=== PATIENT | female | born 1940 | race Caucasian/White ===

== ENCOUNTER 2022-11-17 10:22 | Emergency (ER) | payer MEDICARE, OTHER, SELFPAY ==
[2022-11-17] VITALS (24 sets, daily range): BP systolic 135–177; BP diastolic 73–99; PULSE 53–59; RESP 16; TEMP 36.4; O2SAT 94–98; BMI 27.3
--- NOTE | 2022-11-17 11:03 | CRLHL7_ITS ---
For Patients: As a result of the Cures Act, medical imaging exams and procedure reports are released immediately into your electronic medical record. You may view this report before your referring provider. If you have questions, please contact your health care provider. INDICATION: Speech difficulty, confusion, headache. TECHNIQUE: CT head without contrast. COMPARISON: September 06, 2021. FINDINGS: CSF spaces: Mild diffuse parenchymal volume loss. Brain parenchyma and extra-axial spaces: Moderate chronic white matter ischemic disease. The helton-white differentiation is normal. No sign of mass, hemorrhage, or midline shift. No extra-axial fluid collection. Skull base and calvarium: Mild mucoperiosteal thickening in the left maxillary sinus. Otherwise, the visualized paranasal sinuses and mastoid air cells demonstrate no acute or significant findings. Bilateral lens replacement. The visualized orbits are grossly unremarkable. No skull fractures. IMPRESSION: No acute intracranial abnormality on this noncontrast CT scan.. Moderate chronic white matter ischemic disease. Please note that all CT scans at this facility use dose modulation, iterative reconstruction, and/or weight-based dosing when appropriate to reduce radiation dose to as low as reasonably achievable. Dictated by Maynor Flores MD @ 11/17/2022 12:17:20 PM (Electronically Signed)
--- NOTE | 2022-11-17 11:11 | ED.NURSE ---
Pt ambulated to BR with a standby assist. Urine collected.
[2022-11-17 11:18] LABS: Appearance Urine Clear (Clear); Bilirubin Urine Negative (Negative); Blood Urine Negative (Negative); Color Urine Yellow (Yellow); Glucose Urine Negative (Negative); Ketones Urine Negative (Negative); Leukocyte Esterase Urine Negative (Negative); Nitrite Urine Negative (Negative); Protein Urine Negative (Negative); Specific Gravity Urine 1.015 (1.000-1.030); Urobilinogen Urine 0.2 (0.2-1.0)
[2022-11-17 11:44] LABS: RBC Urine 0-2 (0-2); WBC Urine 0-2 (0-5)
[2022-11-17 11:45] LABS: Squamous Epithelial Cell Urine Few (None-Few)
[2022-11-17 11:53] LABS: Basophils Absolute Auto 0.01 K/uL (0.00-0.30); Basophils Percent Auto 0.2 % (0.0-3.0); Eosinophils Absolute Auto 0.08 K/uL (0.00-0.50); Eosinophils Percent Auto 1.7 % (0.0-7.0); Hematocrit 36.2 % (33.0-51.0); Hemoglobin* 11.9 gm/dL (12.0-16.0); Immature Granulocytes Abs Auto 0.01 K/uL (0.00-0.30); Immature Granulocytes Pct Auto 0.2 %; Lymphocytes Absolute Auto 1.45 K/uL (0.90-2.90); Lymphocytes Percent Auto 30.9 % (20-44); Mean Corpuscular HGB Conc 33 gm/dL (32-36); Mean Corpuscular Hemoglobin 30 pg (26-34); Mean Corpuscular Volume 91 fL (80-100); Monocytes Percent Auto 9.4 % (0.0-11.0); Neutrophils Absolute Auto 2.71 K/uL (1.7-7.0); Neutrophils Percent Auto 57.6 % (42.0-72.0); Platelet Count* 240 K/uL (140-440); RDW Coefficient of Variation % 13.5 % (11.5-15.5); Red Blood Count 3.99 m/uL (4.00-5.20)
[2022-11-17 11:53] LABS: SARS PCR* Negative SARS-CoV-2 (Negative)
[2022-11-17 11:55] LABS: Slide Review Reflex No
[2022-11-17 12:06] LABS: Troponin, Point-of-Care* 0.01 ng/ml (0.01-0.04)
--- NOTE | 2022-11-17 12:39 | CRLHL7_ITS ---
For Patients: As a result of the Cures Act, medical imaging exams and procedure reports are released immediately into your electronic medical record. You may view this report before your referring provider. If you have questions, please contact your health care provider. INDICATION: Acute speech difficulties. TECHNIQUE: Sagittal T1, axial FLAIR, T2, diffusion-weighted and susceptibility weighted images of the brain. Comparison : CT brain dated 09/06/2021. FINDINGS: The ventricles normal in size and configuration no evidence of acute ischemic infarction. No areas of diffusion restriction no evidence of intracranial hemorrhage. Multi focal and confluent zones of FLAIR/T2 signal hyperintensity within bilateral supratentorial white matter and with fewer but similar findings in the basal ganglia and moiz. The changes are consistent with chronic microvascular ischemia. Orbits, sella and skull base unremarkable. Left maxillary sinus retention cyst and mild maxillary sinus mucosal thickening. IMPRESSION: 1. No evidence of acute ischemic infarction, intracranial hemorrhage or mass. 2. Consistent with moderate chronic microvascular ischemic changes. Dictated by Joe Robbins MD @ 11/17/2022 3:25:13 PM (Electronically Signed)
[2022-11-17 13:02] LABS: Erythrocyte SedimentationRate* 16 mm/hr (2-20)
[2022-11-17 14:04] LABS: Albumin* 4.3 g/dL (3.3-5.0)
[2022-11-17 14:05] LABS: Chloride* 104 mmol/L (96-114); Potassium* 4.3 mmol/L (3.6-5.1); Sodium* 138 mmol/L (135-149)
[2022-11-17 14:07] LABS: Alanine Aminotransferase* 23 U/L (4-35); Alkaline Phosphatase* 64 U/L (40-150); Aspartate Amino Transferase* 31 U/L (12-35); Bilirubin Direct* 0.3 mg/dL (0.0-0.5); Bilirubin Total* 0.6 mg/dL (0.1-1.5); Creatinine* 1.1 mg/dL (0.5-1.5); Est. Creatinine Clearance* 31.49; Estimated Glomerular Filt Rate 50 ml/min; Total Protein* 7.7 g/dL (6.0-8.3)
[2022-11-17 14:08] LABS: Blood Urea Nitrogen* 24 mg/dL (7-30); Carbon Dioxide* 27 mmol/L (20-32)
[2022-11-17 14:09] LABS: Calcium* 9.5 mg/dL (8.4-10.6); Glucose* 123 mg/dL (60-115)
[2022-11-17 14:14] LABS: C Reactive Protein* < 0.5 mg/dL (0.5-1.0)
--- NOTE | 2022-11-17 15:25 | ED.GENADULT ---
HPI - General Adult General Date Seen: 11/17/22 Chief complaint: Weakness Stated complaint: weakness Time Seen by Provider: 11/17/22 10:32 Source: patient and family Mode of arrival: EMS Limitations: no limitations History of Present Illness HPI narrative: Patient is an 82-year-old woman who comes in by EMS at the recommendation of her family for an evaluation of an episode yesterday. She tells me that she had a period of time yesterday where she was having difficulty talking, she says that her was making current a egg, she was having trouble talking about wanting the egg, something about having a spoon and trying to eat the egg with the spoon. She says she had some pain in her eye at that time, but does not specifically complain about visual symptoms. She says she slept most of the afternoon, and by the evening it sounds like she was back to normal. I asked if they considered coming in yesterday at all and she says that they did not because it was a weekend, and the last time she was seen on a weekend, she was admitted to the hospital and nothing happened until mid week. However, today when her daughter heard about what happened she insisted that she be evaluated today. Currently she is without complaints. She says she occasionally gets some dysuria but is not having any presently. She does not have any respiratory symptoms. She has not had any vomiting or diarrhea. She does tell me that she was supposed to be on thyroid medication, but in July or August she stopped taking that because she thought it was making her gassy. She says she did e-mail her primary doctor and tell her this, but her primary doctor then went on vacation for 3 months. She says that her primary doctor responded saying that she did not think it would work to be off of her thyroid medication, but at present it seems as if this has just been left in limbo. She does tell me she has a history of TIA. She is on clopidogrel. It does not appear that she has history of atrial fibrillation. Related Data Home Medications Medication Instructions Recorded Confirmed clopidogrel 75 mg tablet 75 mg PO DAILY 11/17/22 11/17/22 hydrochlorothiazide 25 mg tablet 25 mg PO DAILY 11/17/22 11/17/22 latanoprost 0.005 % eye drops 1 drp ophthalmic (eye) QPM 11/17/22 11/17/22 levothyroxine 25 mcg tablet 25 mcg PO DAILY 11/17/22 11/17/22 losartan 100 mg tablet 100 mg PO DAILY 11/17/22 11/17/22 metoprolol succinate 25 mg 25 mg PO DAILY 11/17/22 11/17/22 tablet,extended release 24 hr omeprazole 20 mg capsule,delayed 20 mg PO DAILY 11/17/22 11/17/22 release polyethylene glycol 3350 17 17 g PO DAILY 11/17/22 11/17/22 gram/dose oral powder pravastatin 20 mg tablet 20 mg PO DAILY 11/17/22 11/17/22 Allergies Allergy/AdvReac Type Severity Reaction Status Date / Time No Known Drug Allergies Allergy Verified 11/17/22 10:36 Review of Systems Status of ROS: Reports: 10 or more systems reviewed and unremarkable except as noted in History and below [facility] Social History Smoking Status: Never smoker Do you use any of these nicotine containing products: None Second hand tobacco smoke exposure: No How often do you have a drink containing alcohol: never How often do you have six or more drinks on one occasion: Never AUDIT-C Alcohol total score: 0 Non-prescribed substance use: denies use service: No Exam Narrative: Exam Narrative: Vital signs as noted above. In general, an alert, nontoxic, pleasant elderly female. Head: Normocephalic, atraumatic. Eyes: Pupils are equal reactive. Extraocular movements are full. No nystagmus. Conjunctivae are normal. ENT: Mucous membranes are moist. Throat is normal. Neck: Supple without lymphadenopathy. No bruits. Heart: Regular rate and rhythm. No murmur or rub. Lungs: Clear bilaterally. No increased work of breathing, crackles or wheezes. Abdomen: Soft and nontender. No organomegaly. Extremities: Well perfused. No edema. No calf tenderness. Pulses intact. Neurologic: Patient is alert and oriented to person and place. Speech is fluent. Face is symmetric. Moves all extremities equally. Visual luu are full. Cerebellar function is intact by finger-nose testing. Affect: Normal. Skin: Warm and dry. Well perfused. Const: Vital Signs, click to edit/add: Vital Signs - 24 hr 11/17/22 10:31 11/17/22 11:46 11/17/22 12:00 Temperature 97.5 F L Pulse Rate 55 L 57 L Pulse Rate [Right Pulse Oximeter] 57 L Respiratory Rate 16 Blood Pressure Blood Pressure [Ri ght Upper Arm] 149/84 H Pulse Oximetry 97 98 97 Oxygen Delivery Me thod Room Air 11/17/22 12:03 11/17/22 12:15 11/17/22 12:30 Temperature Pulse Rate 59 L 54 L 54 L Pulse Rate [Right Pulse Oximeter] Respiratory Rate Blood Pressure 135/76 Blood Pressure [Ri ght Upper Arm] Pulse Oximetry 95 95 97 Oxygen Delivery Me thod 11/17/22 12:32 11/17/22 12:45 11/17/22 13:03 Temperature Pulse Rate 55 L 59 L Pulse Rate [Right Pulse Oximeter] Respiratory Rate Blood Pressure 160/79 H 177/99 H Blood Pressure [Ri ght Upper Arm] Pulse Oximetry 97 98 Oxygen Delivery Me thod 11/17/22 13:05 11/17/22 13:15 11/17/22 13:30 Temperature Pulse Rate 55 L 55 L 54 L Pulse Rate [Right Pulse Oximeter] Respiratory Rate Blood Pressure Blood Pressure [Ri ght Upper Arm] Pulse Oximetry 96 97 94 Oxygen Delivery Me thod 11/17/22 13:32 Temperature Pulse Rate 53 L Pulse Rate [Right Pulse Oximeter] Respiratory Rate Blood Pressure 162/73 H Blood Pressure [Ri ght Upper Arm] Pulse Oximetry 94 Oxygen Delivery Me thod Documenting provider has reviewed patient's vital signs: yes Course Course Hospital Course: I did talk with her a little later in the course of her ER stay. His version of events is roughly similar although the speech difficulty is a little harder to parse out. It does seem that the episode was roughly centered around the egg, that she wanted to have an egg, that she had a spoon in her hand, that she seemed out of sorts. I asked him whether not she was having difficulty talking, and he said yes, but it seems in general just to center in his mind about the fact that she was yelling about wanting the a egg and waving the spoon around. He does confirm that he then got her to go to bed and she slept most of the rest of the day. Because there was some mention of eye pain or headache, I did do a CT scan of the head which by my review did not show any evidence of hemorrhage, final radiology review was likewise negative. Labs are notable for normal white blood cell count, unremarkable hemoglobin. Metabolic panel is normal, blood sugar here was 123. LFTs are unremarkable, CRP is less than 0.5. Notably, TSH is 22, not surprising since she has gone off her Synthroid. Free T4 is pending. Urinalysis is entirely negative. A COVID is negative in point of care troponin is 0.01. An EKG here shows a sinus bradycardia, ventricular rate of 55 beats per minute. No acute ST segment changes. She has been stable here without any acute neurologic events. I did elect to do an MRI today given that that there is some question of a speech related event yesterday. I am awaiting results of the radiology read of that, and awaiting the results of the free T4. MRI read by Radiology as negative for any acute findings. She does have small vessel ischemic disease. Her free T4 is low, as expected given that she stop taking her thyroid replacement. I have recommended to her that she restart this, I suspect that she will not based on her opinion that it is causing her gastrointestinal symptoms. At a minimum, I have recommended that she discuss this further with her primary care doctor. For now, I think discharge home is reasonable. Primary care follow-up next week for recheck. Etiology of episode yesterday unclear at this time. Return at any time for new or worsening symptoms. Vital Signs Vital signs: Initial Vital Signs Temperature 97.5 F L 11/17/22 10:31 Temperature Source Temporal Artery Scan 11/17/22 10:31 Pulse Rate 57 L 11/17/22 10:31 Respiratory Rate 16 11/17/22 10:31 Blood Pressure 149/84 H 11/17/22 10:31 Blood Pressure Mean 105 11/17/22 10:31 Blood Pressure Position Sitting 11/17/22 10:31 Pulse Oximetry 97 11/17/22 10:31 Oxygen Delivery Method 11/17/22 10:31 Vital Signs Temperature 97.5 F L 11/17/22 10:31 Pulse Rate 57 L 11/17/22 10:31 Respiratory Rate 16 11/17/22 10:31 Blood Pressure 149/84 H 11/17/22 10:31 Pulse Oximetry 97 11/17/22 10:31 Oxygen Delivery Method 11/17/22 10:31 Temperature 97.5 F L 11/17/22 10:31 Pulse Rate 55 L 11/17/22 15:33 Respiratory Rate 16 11/17/22 10:31 Blood Pressure 161/81 H 11/17/22 15:32 Pulse Oximetry 95 11/17/22 15:33 Oxygen Delivery Method 11/17/22 10:31 Medical Decision Making Lab Data Labs: Lab Results 11/17/22 11/17/22 11/17/22 Range/Units 11:00 11:11 11:35 WBC 4.70 (4.50-11.00) K/uL RBC 3.99 L (4.00-5.20) m/uL Hgb 11.9 L (12.0-16.0) gm/dL Hct 36.2 (33.0-51.0) % MCV 91 (80-100) fL MCH 30 (26-34) pg MCHC 33 (32-36) gm/dL RDW Coeff of Ted 13.5 (11.5-15.5) % Plt Count 240 (140-440) K/uL Neut % (Auto) 57.6 (42.0-72.0) % Lymph % (Auto) 30.9 (20-44) % Bailey % (Auto) 9.4 (0.0-11.0) % Eos % (Auto) 1.7 (0.0-7.0) % Baso % (Auto) 0.2 (0.0-3.0) % Neut # (Auto) 2.71 (1.7-7.0) K/uL Lymph # (Auto) 1.45 (0.90-2.90) K/uL Bailey # (Auto) 0.40 (0.00-0.90) K/UL Eos # (Auto) 0.08 (0.00-0.50) K/uL Baso # (Auto) 0.01 (0.00-0.30) K/uL ESR (2-20) mm/hr Sodium (135-149) mmol/L Potassium (3.6-5.1) mmol/L Chloride (96-114) mmol/L Carbon Dioxide (20-32) mmol/L BUN (7-30) mg/dL Creatinine (0.5-1.5) mg/dL Estimated Creat Clear Estimated GFR ml/min Glucose (60-115) mg/dL Calcium (8.4-10.6) mg/dL Total Bilirubin (0.1-1.5) mg/dL Direct Bilirubin (0.0-0.5) mg/dL AST (12-35) U/L ALT (4-35) U/L Alkaline Phosphatase (40-150) U/L C-Reactive Protein (0.5-1.0) mg/dL Total Protein (6.0-8.3) g/dL Albumin (3.3-5.0) g/dL TSH (0.270-4.200) uIU/mL Free T4 (0.70-1.85) ng/dL Urine Color Yellow (Yellow) Urine Appearance Clear (Clear) Urine pH 7.0 (5.0-8.5) Ur Specific [place] 1.015 (1.000-1.030) Urine Protein Negative (Negative) Urine Glucose (UA) Negative (Negative) Urine Ketones Negative (Negative) Urine Blood Negative (Negative) Urine Nitrite Negative (Negative) Urine Bilirubin Negative (Negative) Urine Urobilinogen 0.2 (0.2-1.0) Ur Leukocyte Esterase Negative (Negative) Urine RBC 0-2 (0-2) Urine WBC 0-2 (0-5) Ur Squamous Epith Cells Few (None-Few) Urine Bacteria None (None) SARS-CoV-2 (PCR) Negative SARS-CoV-2 (Negative) POC Troponin I (0.01-0.04) ng/ml 11/17/22 11/17/22 11/17/22 Range/Units 11:35 11:35 11:35 WBC (4.50-11.00) K/uL RBC (4.00-5.20) m/uL Hgb (12.0-16.0) gm/dL Hct (33.0-51.0) % MCV (80-100) fL MCH (26-34) pg MCHC (32-36) gm/dL RDW Coeff of Ted (11.5-15.5) % Plt Count (140-440) K/uL Neut % (Auto) (42.0-72.0) % Lymph % (Auto) (20-44) % Bailey % (Auto) (0.0-11.0) % Eos % (Auto) (0.0-7.0) % Baso % (Auto) (0.0-3.0) % Neut # (Auto) (1.7-7.0) K/uL Lymph # (Auto) (0.90-2.90) K/uL Bailey # (Auto) (0.00-0.90) K/UL Eos # (Auto) (0.00-0.50) K/uL Baso # (Auto) (0.00-0.30) K/uL ESR 16 (2-20) mm/hr Sodium 138 (135-149) mmol/L Potassium 4.3 (3.6-5.1) mmol/L Chloride 104 (96-114) mmol/L Carbon Dioxide 27 (20-32) mmol/L BUN 24 (7-30) mg/dL Creatinine 1.1 (0.5-1.5) mg/dL Estimated Creat Clear 31.49 Estimated GFR 50 ml/min Glucose 123 H (60-115) mg/dL Calcium 9.5 (8.4-10.6) mg/dL Total Bilirubin 0.6 (0.1-1.5) mg/dL Direct Bilirubin 0.3 (0.0-0.5) mg/dL AST 31 (12-35) U/L ALT 23 (4-35) U/L Alkaline Phosphatase 64 (40-150) U/L C-Reactive Protein < 0.5 L (0.5-1.0) mg/dL Total Protein 7.7 (6.0-8.3) g/dL Albumin 4.3 (3.3-5.0) g/dL TSH (0.270-4.200) uIU/mL Free T4 (0.70-1.85) ng/dL Urine Color (Yellow) Urine Appearance (Clear) Urine pH (5.0-8.5) Ur Specific [place] (1.000-1.030) Urine Protein (Negative) Urine Glucose (UA) (Negative) Urine Ketones (Negative) Urine Blood (Negative) Urine Nitrite (Negative) Urine Bilirubin (Negative) Urine Urobilinogen (0.2-1.0) Ur Leukocyte Esterase (Negative) Urine RBC (0-2) Urine WBC (0-5) Ur Squamous Epith Cells (None-Few) Urine Bacteria (None) SARS-CoV-2 (PCR) (Negative) POC Troponin I (0.01-0.04) ng/ml 11/17/22 11/17/22 11/17/22 Range/Units 11:35 11:35 11:35 WBC (4.50-11.00) K/uL RBC (4.00-5.20) m/uL Hgb (12.0-16.0) gm/dL Hct (33.0-51.0) % MCV (80-100) fL MCH (26-34) pg MCHC (32-36) gm/dL RDW Coeff of Ted (11.5-15.5) % Plt Count (140-440) K/uL Neut % (Auto) (42.0-72.0) % Lymph % (Auto) (20-44) % Bailey % (Auto) (0.0-11.0) % Eos % (Auto) (0.0-7.0) % Baso % (Auto) (0.0-3.0) % Neut # (Auto) (1.7-7.0) K/uL Lymph # (Auto) (0.90-2.90) K/uL Bailey # (Auto) (0.00-0.90) K/UL Eos # (Auto) (0.00-0.50) K/uL Baso # (Auto) (0.00-0.30) K/uL ESR (2-20) mm/hr Sodium (135-149) mmol/L Potassium (3.6-5.1) mmol/L Chloride (96-114) mmol/L Carbon Dioxide (20-32) mmol/L BUN (7-30) mg/dL Creatinine (0.5-1.5) mg/dL Estimated Creat Clear Estimated GFR ml/min Glucose (60-115) mg/dL Calcium (8.4-10.6) mg/dL Total Bilirubin (0.1-1.5) mg/dL Direct Bilirubin (0.0-0.5) mg/dL AST (12-35) U/L ALT (4-35) U/L Alkaline Phosphatase (40-150) U/L C-Reactive Protein (0.5-1.0) mg/dL Total Protein (6.0-8.3) g/dL Albumin (3.3-5.0) g/dL TSH 22.700 H (0.270-4.200) uIU/mL Free T4 0.52 L (0.70-1.85) ng/dL Urine Color (Yellow) Urine Appearance (Clear) Urine pH (5.0-8.5) Ur Specific [place] (1.000-1.030) Urine Protein (Negative) Urine Glucose (UA) (Negative) Urine Ketones (Negative) Urine Blood (Negative) Urine Nitrite (Negative) Urine Bilirubin (Negative) Urine Urobilinogen (0.2-1.0) Ur Leukocyte Esterase (Negative) Urine RBC (0-2) Urine WBC (0-5) Ur Squamous Epith Cells (None-Few) Urine Bacteria (None) SARS-CoV-2 (PCR) (Negative) POC Troponin I 0.01 (0.01-0.04) ng/ml Discharge Plan Discharge Clinical Impression: Confusion, Hypothyroid Patient Disposition: Home, Self-Care Condition: Improved Instructions: Hypothyroidism (ED), Acute Delirium (ED) Additional Instructions: Overall, your tests today are reassuring. Your MRI does not show any evidence of a new stroke, and there is no sign of an infection, significant problem with your heart, or electrolyte problem. You do have low thyroid hormone levels, consistent with the fact that you are not taking your thyroid replacement. I would recommend that you go back on this medication, as being persistently low in thyroid hormone can cause significant problems. At a minimum, this is something you should discuss further with your primary doctor. Prescriptions: No Action latanoprost 0.005 % drops 1 drp ophthalmic (eye) QPM clopidogrel 75 mg tablet 75 mg PO DAILY levothyroxine 25 mcg tablet 25 mcg PO DAILY omeprazole 20 mg capsule,delayed release(DR/EC) 20 mg PO DAILY pravastatin 20 mg tablet 20 mg PO DAILY hydrochlorothiazide 25 mg tablet 25 mg PO DAILY metoprolol succinate 25 mg tablet extended release 24 hr 25 mg PO DAILY polyethylene glycol 3350 17 gram/dose powder 17 g PO DAILY losartan 100 mg tablet 100 mg PO DAILY Follow Up/Referrals: Nora Watters MD [Primary Care Provider] - Stand Alone Forms: [employer] Info Instructions
[2022-11-17 15:34] LABS: Free T4 Free Thyroxine* 0.52 ng/dL (0.70-1.85)
--- NOTE | 2022-11-17 15:50 | ED.NURSE ---
walked to and from the bathroom and was wobbly on the legs needed SBA with staff or .
== END 2022-11-17 16:10 | disposition home or self-care (01) ==
PROVIDERS: Emergency Provider Emergency Medicine; PCP Family Medicine
DX: R41.0 Disorientation, unspecified (principal); E03.9 Hypothyroidism, unspecified
CPT/HCPCS: 36415; 70450; 70551; 80048; 80076; 81001; 84439; 84443; 84484; 85025; 85651; 86140; 87635; 93005; 99284; 99285

== ENCOUNTER 2023-03-31 06:27 | Day surgery (SDC) | payer MEDICARE, OTHER, SELFPAY ==
[2023-03-31] VITALS (9 sets, daily range): BP systolic 129–177; BP diastolic 60–83; PULSE 58–64; RESP 16; TEMP 36.1–36.4; O2SAT 95–97; BMI 27.4
[2023-03-31] MEDS: BUPIVACAINE 0.5% 30 ML INJECTION (07:35)
[2023-03-31] MEDS: lidocaine HCL 2 % MULTIDOSE 20 ML VIAL 5 ML INJECTION (07:42)
--- NOTE | 2023-03-31 07:51 | PM.ORPRC ---
Procedure Note Date of procedure: 03/31/23 Procedure: Preop diagnosis: Left hand ring finger stenosing tenosynovitis Postop diagnosis: Left hand ring finger stenosing tenosynovitis Procedure: Left hand ring finger A1 chani release Anesthesia: Local Surgeon: David Bruce MD licensed physical therapy assistant: Rosy Wolf PA-C EBL: 0 mL Complications: None Specimens: None Drains: None Preoperative antibiotics: None Indications: The patient has a history of left upper extremity ring finger painful catching and locking. Despite appropriate non operative management including flexor tendon sheath corticosteroid injections they continue to have symptoms. Operative intervention was recommended. The risks, benefits alternatives and expected outcomes were discussed in detail. These included but were not limited to: Infection, bleeding, injury to blood vessel or nerve, venous thromboembolism. All questions were answered to their satisfaction. The patient was placed supine on the operating room table. Local anesthesia was established with 0.5% Marcaine without epinephrine and 2% lidocaine without epinephrine. The hand was prepped and draped in usual sterile fashion. The limb was elevated the forearm pneumatic tourniquet was inflated to 250 mm of mercury. A transverse incision was made centered over the base of the ring finger in the distal palmar crease. Subcutaneous dissection was taken through the palmar fascia to the flexor tendons with the tenotomy scissors. The A1 chani was released with the 15 blade and a tenotomy scissors. Active flexion and extension of the finger shows no catching or locking, no bowstringing of the flexor tendons. The wound was closed with interrupted nylon sutures. A dry dressing was applied the tourniquet was released. Sponge and needle counts were correct x 2. The patient tolerated the procedure well, there were no apparent complications. They were sent to same day surgery in satisfactory condition. Plan: Use of the hand as tolerates. Discontinue the intraoperative dressing on postoperative day 3 and may get the wound wet as tolerates. Follow up in the office in 2 weeks for a wound check and suture removal.
== END 2023-03-31 08:29 | disposition home or self-care (01) ==
PROVIDERS: PCP Physician Assistant; Visit Provider Orthopaedic Surgery
PROC: (CPT 26055; principal; 2023-03-31 07:15)
DX: M65.342 Trigger finger, left ring finger (principal); M65.842 Other synovitis and tenosynovitis, left hand
CPT/HCPCS: 26055; J0665

== ENCOUNTER 2023-04-28 11:15 | Outpatient (RCR) | payer MEDICARE, OTHER, SELFPAY ==
--- NOTE | 2023-04-07 15:19 | OT.OPOE ---
OT Outpatient Ortho Eval OT Outpatient Ortho Eval* Start: 04/07/23 13:37 Freq: Status: Active Protocol: Document 04/07/23 13:38 AMB (Rec: 04/07/23 15:15 AMB [id number]) E-signed By Reina León, OTR/L, CLT, MANAGER MEDICAL AFFAIRS OT OP Ortho Eval Details Complexity Complexity Low Insurance Information Insurance Information Medicare B Outpatient History/Precautions Current Condition/Medical Diagnosis Referring Provider Sruthi Jauregui PA-C Treatment Diagnosis Release of TF of the LUE 4th digit Date of Onset 03/31/23 Medical Conditions HTN,CA,Arthritis Other Conditions PMH (Copied from medical chart ) Glaucoma H40.9 - Unspecified glaucoma ( ICD-10) Melanoma C43.9 - Malignant melanoma of skin, unspecified (ICD-10) Anxiety F41.9 - Anxiety disorder, unspecified (ICD-10) Blood disorder D75.9 - Disease of blood and blood-forming organs, unspecified (ICD-10) Anemia D64.9 - Anemia, unspecified ( ICD-10) Incontinence of urine R32 - Unspecified urinary incontinence (ICD-10) Chronic kidney disease N18.9 - Chronic kidney disease , unspecified (ICD-10) GERD (gastroesophageal reflux disease) K21.9 - Gastro-esophageal reflux disease without esophagitis (ICD-10) Irritable bowel syndrome (IBS) K58.9 - Irritable bowel syndrome without diarrhea (ICD -10) High cholesterol E78.00 - Pure hypercholesterolemia, unspecified (ICD-10) Hypertension I10 - Essential (primary) hypertension (ICD-10) CHF (congestive heart failure) I50.9 - Heart failure, unspecified (ICD-10) TIA (transient ischemic attack ) G45.9 - Transient cerebral ischemic attack, unspecified ( ICD-10) Infection due to severe acute respiratory syndrome coronavirus 2 (SARS-CoV-2) U07.1 - COVID-19 (ICD-10) Surgical History (Updated 07/23 @ 09:47 by Zion Peace) History of arthroscopy of left knee (~11/08/13) Z98.890 - Other specified postprocedural states (ICD-10) History of bladder repair surgery Z98.890 - Other specified postprocedural states (ICD-10) History of tonsillectomy Z90.89 - Acquired absence of other organs (ICD-10) History of hysterectomy Z90.710 - Acquired absence of both cervix and uterus (ICD-10 ) History of left knee replacement (~07/31/09) Z96.652 - Presence of left artificial knee joint (ICD-10) History of appendectomy Z90.49 - Acquired absence of other specified parts of digestive tract (ICD-10) History of phacoemulsification of cataract of left eye with intraocular lens implantation (06/14/14) Z98.42 - Cataract extraction status, left eye (ICD-10) Z96.1 - Presence of intraocular lens (ICD-10) History of phacoemulsification of cataract of right eye with intraocular lens implantation (06/28/14) Z98.41 - Cataract extraction status, right eye (ICD-10) Z96.1 - Presence of intraocular lens (ICD-10) History of arthroscopy of left shoulder (07/09/18) Z98.890 - Other specified postprocedural states (ICD-10) History of carpal tunnel release (10/21/18) Z98.890 - Other specified postprocedural states (ICD-10) History of YAG laser capsulotomy of lens of right eye (05/02/20) Z98.41 - Cataract extraction status, right eye (ICD-10) History of YAG laser capsulotomy of lens of left eye (05/16/20) Z98.42 - Cataract extraction status, left eye (ICD-10) Medical/Functional History Medical History Reviewed Yes Social History Employment Status Retired Ortho Subjective Subjective Subjective Pt states her finger and hand have been quite stiff and swollen since her TF release on 03/31/23. PT states she is able to do most everything but is careful with her left hand . Pt states she has been quite stressed recently as she recently had a spot of skin cancer removed from her left ear, also states that her has some dementia and that has also been stressful. Pt states her pain is 5/5 in her hand, describes it as sharp sometimes but mostly throbbing. Pain Assessment Pain Present Pain Present Pain Reported Range of Motion and Strength Wrist Range of Motion and Strength Wrist Range of Motion and Strength 04/07/23 AROM of the LUE is WNL throughout with the exception of her ring finger. AROM of the LUE ring finger MP is 0-65 , PIP is -20-75, DIP is 0-30. Strength testing not performed due to recent surgery. OT Objective Data Hand Hand Dominance Right Skin/Wounds/Edema Comments 04/07/23 Surgical wound still closed by sutures, will have removed next week. Incisional area is clean and dry, no s/s of infection, no drainage noted today. Sensation Sensation Assessment Summary Comments 04/07/23 Numbness in the palm in surgical field, expected. OT Problems Problems Problems Decreased Strength,Decreased Range of Motion,Decreased Dexterity,Pain,Lifting, Gripping,Pinching Other Problems Opening Containers Patient Potential Good Assessment Assessment Assessment Pt is a very pleasant 82yo female reporting to OT 7 days post LUE 4th digit TF release with expected swelling, numbness, weakness and limited AROM of the LUE, mostly the 4th digit. These limitations impair pt's ability to quality head, lift, open containers / complete higher level ADLs and IADLs that require use of LUE or bilateral integration. Pt will benefit from skilled OT intervention to improve ROM, strength, decrease swelling, and restore full, functional use of her LUE. Occupational Therapy Treatment Plan - OP Potential Rehabilitation Potential Good Set Goals Goals Set with Patient Yes Goals Goals 1. Pt will be independent and compliant with HEP in order to resume full, pain-free use of the involved UE. 3 weeks 2. Pt will demonstrate full, pain-free AROM of the involved UE in order to improve ability to grasp and hold. 6 weeks 3. Pt will demonstrate pain- free quality head and pinch strength comparable to the uninvolved side in order to improve functional grasp, hold, reach, and lifting ability needed to complete self-care, leisure tasks, and work activities. 8 weeks. Treatment Plan Treatment Plan Evaluation,Edema Control,Joint Mobilization,Manual Therapy, Splinting,Ultrasound,Wound Care/Scar Management, Therapeutic Exercise, Therapeutic Activities,Self Care/Home Management,Education Expected Frequency 1-2x Week Expected Duration 8-10 Weeks Home Program Home Program Home Program Initiated Home Program Specifics 04/07/23 Initiated AROM and gentle AAROM of the LUE 4th digit. Pt was provided training and practice in HEP. Following demo, pt is able to complete exs with minimal cues . Pt was provided with written inst for use at home. Certification Certification I Certify That: Therapy Services Provided, Therapy Plan Established, Therapy Plan Reviewed Recertification Information Recertification Information Initial Certification Date 04/07/23 Recertification Due Date 07/08/23 Reasons to Continue Skilled Therapy Initiated OT today to address LUE ROM, strength, swelling, and pain following 4th digit TF release. Pt will benefit from skilled OT intervention to address these impairments and restore full, pain-free use of her LUE. Rehabilitation Potential Good Continued Plan of Care and Interventions Please see above Provider Signature Shows Agreement With POC & Medical Necessity Physician Comment/Change Comment or Changes Physician NPI Number #
== END 2023-04-28 13:53 | disposition home or self-care (01) ==
PROVIDERS: PCP Physician Assistant; Visit Provider Physician Assistant
DX: M65.342 Trigger finger, left ring finger (principal); Z51.89 Encounter for other specified aftercare
CPT/HCPCS: 97110; 97140; 97165; X5282

== ENCOUNTER 2024-06-24 07:41 | Observation (INO) | payer MEDICARE, OTHER, SELFPAY ==
[2024-06-24] VITALS (14 sets, daily range): BP systolic 135–163; BP diastolic 59–86; PULSE 67–96; RESP 12–16; TEMP 36.7–37.5; O2SAT 94–97; BMI 24.8; BMI 23.5
--- NOTE | 2024-06-24 08:15 | ED.WEAKNESS ---
HPI - Weakness General Chief complaint: Weakness Stated complaint: Weakness Time Seen by Provider: 06/24/24 07:57 History of Present Illness HPI Narrative: This 84-year-old woman comes in by ambulance reporting weakness that began yesterday afternoon. She states she is normally able to get up and ambulate and despite the report of weakness she still is able to get up and ambulate. She does frequently have urinary incontinence and wears depends. She did not get up to the bathroom this morning and was incontinent of urine. She is not reporting any pain or fever. She does not indicate any neurologic deficits. She arrives here with normal vital signs. Related Data Home Medications ?Medication ?Instructions ?Recorded ?Confirmed clopidogrel 75 mg tablet 75 mg PO DAILY 11/17/22 06/24/24 latanoprost 0.005 % eye drops 1 drp ophthalmic (eye) QPM 11/17/22 06/24/24 pravastatin 20 mg tablet 20 mg PO DAILY 11/17/22 06/24/24 thyroid (pork) 15 mg tablet 15 mg PO QDAY 03/16/23 04/13/23 ([place] Thyroid) ciclopirox 8 % topical solution 1 applic topical QPM 06/24/24 06/24/24 famotidine 40 mg tablet 40 mg PO DAILY 06/24/24 06/24/24 ferrous sulfate 325 mg (65 mg 325 mg PO 3XW 06/24/24 06/24/24 iron) tablet,delayed release losartan 50 mg tablet 50 mg PO DAILY 06/24/24 06/24/24 [id number] acid 0.4 1 tab PO DAILY 06/24/24 06/24/24 mg-lycopene 300 mcg-lutein 250 mcg tablet (Centrum Silver) oxybutynin chloride 5 mg 5 mg PO DAILY 06/24/24 06/24/24 tablet,extended release 24 hr thyroid (pork) 60 mg tablet 60 mg PO DAILY 06/24/24 06/24/24 ([place] Thyroid) Allergies Allergy/AdvReac Type Severity Reaction Status Date / Time ciprofloxacin Allergy Mild Joint Pain Verified 06/24/24 08:17 lisinopril Allergy Mild Fatigued Verified 06/24/24 08:17 amlodipine AdvReac Unknown Verified 06/24/24 08:17 atenolol AdvReac Unknown Verified 06/24/24 08:17 codeine AdvReac Unknown Dry Mouth Verified 06/24/24 08:17 contrast dye Allergy Unknown Hives Uncoded 06/24/24 08:17 Review of Systems Status of ROS: Reports: 10 or more systems reviewed and unremarkable except as noted in History and below Narrative: Constitutional: No fevers, no weight gain or loss. She reports generalized weakness. Eyes: No discharge. No vision changes. HENT: No congestion, no sore throat, no ear pain. Cardiovascular: No chest pain, no palpitations. Respiratory: No shortness of breath, no wheezes, no cough. Gastrointestinal: No abdominal pain, no vomiting, no diarrhea. Genitourinary: No dysuria, no hematuria. Musculoskeletal: Normal range of motion. Skin: No rashes, no pruritis. Neurological: No dizziness, weakness, sensory change, speech change. Endo/Heme/Allergies: No bruising or bleeding. No polydipsia. Pysch: no suicidality, no anxiety, no insomnia. All other systems reviewed and are negative. [facility] Medical History (Updated 06/24/24 @ 12:35 by Daryl Jane MD) Glaucoma ?H40.9 - Unspecified glaucoma (ICD-10) Melanoma ?C43.9 - Malignant melanoma of skin, unspecified (ICD-10) Anxiety ?F41.9 - Anxiety disorder, unspecified (ICD-10) Blood disorder ?D75.9 - Disease of blood and blood-forming organs, unspecified (ICD-10) Anemia ?D64.9 - Anemia, unspecified (ICD-10) Incontinence of urine ?R32 - Unspecified urinary incontinence (ICD-10) Chronic kidney disease ?N18.9 - Chronic kidney disease, unspecified (ICD-10) GERD (gastroesophageal reflux disease) ?K21.9 - Gastro-esophageal reflux disease without esophagitis (ICD-10) Irritable bowel syndrome (IBS) ?K58.9 - Irritable bowel syndrome without diarrhea (ICD-10) High cholesterol ?E78.00 - Pure hypercholesterolemia, unspecified (ICD-10) Hypertension ?I10 - Essential (primary) hypertension (ICD-10) CHF (congestive heart failure) ?I50.9 - Heart failure, unspecified (ICD-10) TIA (transient ischemic attack) ?G45.9 - Transient cerebral ischemic attack, unspecified (ICD-10) Infection due to severe acute respiratory syndrome coronavirus 2 (SARS-CoV-2) ?U07.1 - COVID-19 (ICD-10) Surgical History (Updated 04/13/23 @ 12:33 by Ghazal Arthur ~ [employer], [employer]) History of arthroscopy of left knee (~11/08/13) ?Z98.890 - Other specified postprocedural states (ICD-10) History of bladder repair surgery ?Z98.890 - Other specified postprocedural states (ICD-10) History of tonsillectomy ?Z90.89 - Acquired absence of other organs (ICD-10) History of hysterectomy ?Z90.710 - Acquired absence of both cervix and uterus (ICD-10) History of left knee replacement (~07/31/09) ?Z96.652 - Presence of left artificial knee joint (ICD-10) History of appendectomy ?Z90.49 - Acquired absence of other specified parts of digestive tract (ICD-10) History of phacoemulsification of cataract of left eye with intraocular lens implantation (06/14/14) ?Z98.42 - Cataract extraction status, left eye (ICD-10) ?Z96.1 - Presence of intraocular lens (ICD-10) History of phacoemulsification of cataract of right eye with intraocular lens implantation (06/28/14) ?Z98.41 - Cataract extraction status, right eye (ICD-10) ?Z96.1 - Presence of intraocular lens (ICD-10) History of arthroscopy of left shoulder (07/09/18) ?Z98.890 - Other specified postprocedural states (ICD-10) History of carpal tunnel release (10/21/18) ?Z98.890 - Other specified postprocedural states (ICD-10) History of YAG laser capsulotomy of lens of right eye (05/02/20) ?Z98.41 - Cataract extraction status, right eye (ICD-10) History of YAG laser capsulotomy of lens of left eye (05/16/20) ?Z98.42 - Cataract extraction status, left eye (ICD-10) Family History (Updated 03/10/23 @ 09:45 by Zion Peace) Other Alcohol dependence Breast cancer High blood pressure Stroke Social History Smoking Status: Never smoker Do you use any of these nicotine containing products: None Second hand tobacco smoke exposure: No How often do you have a drink containing alcohol: never How often do you have six or more drinks on one occasion: Never AUDIT-C Alcohol total score: 0 Non-prescribed substance use: denies use service: No Exam Narrative: Exam Narrative: Constitutional: Well-developed, well-nourished, no acute distress. HEENT: Normocephalic, atraumatic. Neck: Normal range of motion. Nontender. Supple. Heart: Regular. No murmurs. Normal rate. Intact distal pulses. Lungs: Clear to auscultation. No chest discomfort. No wheezes, rhonchi, or rales. Abdomen: Normal bowel sounds. Nontender. No rebound tenderness. Genitalia: Deferred. Back: No midline tenderness. Normal range of motion. Extremities: Normal range of motion. No injury. Skin: Intact. No rash. Warm. No erythema or pallor. Neurologic: No altered sensation. No unilateral weakness. Alert and oriented. Psychiatric: No suicidality. No anxiety or depression. No insomnia. Nursing notes and vitals signs are reviewed. Const: Vital Signs, click to edit/add: Vital Signs - 24 hr 06/24/24 07:51 06/24/24 09:02 06/24/24 09:32 Temperature 98.1 F Pulse Rate 76 68 Pulse Rate [Pulse Oximeter] 77 Respiratory Rate 16 14 12 Blood Pressure 155/72 H 150/72 H Blood Pressure [Ri ght Upper Arm] 163/75 H Pulse Oximetry 97 96 97 Oxygen Delivery Me thod Room Air 06/24/24 10:02 06/24/24 10:32 06/24/24 11:01 Temperature Pulse Rate 72 70 84 Pulse Rate [Pulse Oximeter] Respiratory Rate 14 12 16 Blood Pressure 161/75 H 149/73 H 151/73 H Blood Pressure [Ri ght Upper Arm] Pulse Oximetry 96 97 97 Oxygen Delivery Me thod 06/24/24 11:41 Temperature Pulse Rate 80 Pulse Rate [Pulse Oximeter] Respiratory Rate 12 Blood Pressure 155/64 H Blood Pressure [Ri ght Upper Arm] Pulse Oximetry 97 Oxygen Delivery Me thod Room Air Course Vital Signs Vital signs: Initial Vital Signs Temperature 98.1 F 06/24/24 07:51 Temperature Source Temporal Artery Scan 06/24/24 07:51 Pulse Rate 77 06/24/24 07:51 Respiratory Rate 16 06/24/24 07:51 Blood Pressure 163/75 H 06/24/24 07:51 Blood Pressure Mean 104 06/24/24 07:51 Blood Pressure Position Semi-Fowlers 06/24/24 07:51 Pulse Oximetry 97 06/24/24 07:51 Oxygen Delivery Method Room Air 06/24/24 07:51 Vital Signs Temperature 98.1 F 06/24/24 07:51 Pulse Rate 77 06/24/24 07:51 Respiratory Rate 16 06/24/24 07:51 Blood Pressure 163/75 H 06/24/24 07:51 Pulse Oximetry 97 06/24/24 07:51 Oxygen Delivery Method Room Air 06/24/24 07:51 Temperature 98.1 F 06/24/24 07:51 Pulse Rate 80 06/24/24 11:41 Respiratory Rate 12 06/24/24 11:41 Blood Pressure 155/64 H 06/24/24 11:41 Pulse Oximetry 97 06/24/24 11:41 Oxygen Delivery Method Room Air 06/24/24 11:41 MDM - Weakness MDM Narrative Medical decision making narrative: This 84-year-old female comes in because of generalized weakness. She does have a chronic history of urinary incontinence. She arrives here with normal vital signs and her exam is generally unremarkable. Labs are acquired along with urinalysis and these do not bring clarity as to what is causing her generalized weakness. The patient was assisted by the nurse to attempt to get up to use the bathroom but this was a clear indication that she truly is currently generally weak. Family members are present and states that she typically goes and goes until she crashes and then sleeps for a while and can recover. She did have COVID about 6 months ago and since then she has declined mentally. She did spend a couple months in a rehab facility at that time. Her daughter is stating that she has been trying to convince the patient and her to move to assisted living but has been unsuccessful up to now. I did speak with the hospitalist on-call, Dr. Bojorquez, who agrees to bring the patient in for observation admission. Lab Data Labs: Lab Results 06/24/24 06/24/24 06/24/24 Range/Units 07:55 08:14 11:35 WBC 11.05 H (4.50-11.00) K/uL RBC 4.09 (4.00-5.20) m/uL Hgb 11.9 L (12.0-16.0) gm/dL Hct 36.1 (33.0-51.0) % MCV 88 (80-100) fL MCH 29 (26-34) pg MCHC 33 (32-36) gm/dL RDW Coeff of Ted 13.3 (11.5-15.5) % Plt Count 218 (140-440) K/uL Neut % (Auto) 86.3 H (42.0-72.0) % Lymph % (Auto) 6.9 L (20-44) % Clare % (Auto) 6.5 (0.0-11.0) % Eos % (Auto) 0.0 (0.0-7.0) % Baso % (Auto) 0.1 (0.0-3.0) % Neut # (Auto) 9.50 H (1.7-7.0) K/uL Lymph # (Auto) 0.80 L (0.90-2.90) K/uL Clare # (Auto) 0.70 (0.00-0.90) K/UL Eos # (Auto) 0.00 (0.00-0.50) K/uL Baso # (Auto) 0.00 (0.00-0.30) K/uL Abs Immat Gran (auto) 0.00 (0.00-0.30) K/uL Imm/Tot Granulo (auto) 0.2 % Sodium 133 L (135-149) mmol/L Potassium 3.8 (3.6-5.1) mmol/L Chloride 99 (96-114) mmol/L Carbon Dioxide 23 (20-32) mmol/L Anion Gap 11 (7-15) mEq/L BUN 20 (7-30) mg/dL Creatinine 0.8 (0.5-1.5) mg/dL Estimated Creat Clear 33.41 Estimated GFR 72 ml/min Glucose 163 H (60-115) mg/dL Calcium 9.5 (8.4-10.6) mg/dL Urine Color Yellow (Yellow) Urine Appearance Clear (Clear) Urine pH 6.0 (5.0-8.5) Ur Specific [place] 1.025 (1.000-1.030) Urine Protein 2+ A (Negative) Urine Glucose (UA) Negative (Negative) Urine Ketones Negative (Negative) Urine Blood Negative (Negative) Urine Nitrite Negative (Negative) Urine Bilirubin Negative (Negative) Urine Urobilinogen 0.2 (0.2-1.0) Ur Leukocyte Esterase Negative (Negative) Urine RBC 0-2 (0-2) Urine WBC 0-2 (0-5) Ur Squamous Epith Cells Moderate A (None-Few) Urine Bacteria None (None) SARS-CoV-2 (PCR) Negative SARS-CoV-2 (Negative) Influenza Type A (PCR) Negative PCR FLU A (Negative) Influenza Type B (PCR) Negative PCR FLU B (Negative) ECG Data Attestation: I personally reviewed and interpreted this ECG as follows: Interpretation: Normal sinus rhythm. Rate is 76 beats per minute. There are no ST or T-wave abnormalities. Discharge Plan Discharge Clinical Impression: Weakness Prescriptions: No Action [place] Thyroid 15 mg tablet 15 mg PO QDAY losartan 50 mg tablet 50 mg PO DAILY famotidine 40 mg tablet 40 mg PO DAILY ciclopirox 8 % solution 1 applic topical QPM oxybutynin chloride 5 mg tablet extended release 24hr 5 mg PO DAILY ferrous sulfate 325 mg (65 mg iron) tablet,delayed release (DR/EC) 325 mg PO 3XW thyroid (pork) [[place] Thyroid] 60 mg tablet 60 mg PO DAILY Centrum Silver 0.4 mg-300 mcg- 250 mcg tablet 1 tab PO DAILY latanoprost 0.005 % drops 1 drp ophthalmic (eye) QPM clopidogrel 75 mg tablet 75 mg PO DAILY pravastatin 20 mg tablet 20 mg PO DAILY Follow Up/Referrals: Catrachita Vela PA-C [Primary Care Provider] -
[2024-06-24 08:26] LABS: Basophils Percent Auto 0.1 % (0.0-3.0); Hematocrit 36.1 % (33.0-51.0); Hemoglobin* 11.9 gm/dL (12.0-16.0); Immature Granulocytes Pct Auto 0.2 %; Lymphocytes Percent Auto 6.9 % (20-44); Mean Corpuscular HGB Conc 33 gm/dL (32-36); Mean Corpuscular Hemoglobin 29 pg (26-34); Mean Corpuscular Volume 88 fL (80-100); Monocytes Percent Auto 6.5 % (0.0-11.0); Neutrophils Percent Auto 86.3 % (42.0-72.0); Platelet Count* 218 K/uL (140-440); RDW Coefficient of Variation % 13.3 % (11.5-15.5); Red Blood Count 4.09 m/uL (4.00-5.20); White Blood Count* 11.05 K/uL (4.50-11.00)
[2024-06-24 08:31] LABS: Slide Review Reflex No
[2024-06-24 08:38] LABS: PCR FLU A Negative PCR FLU A (Negative); PCR FLU B Negative PCR FLU B (Negative); SARS PCR* Negative SARS-CoV-2 (Negative)
[2024-06-24 08:46] LABS: Chloride* 99 mmol/L (96-114); Potassium* 3.8 mmol/L (3.6-5.1); Sodium* 133 mmol/L (135-149)
[2024-06-24 08:49] LABS: Anion Gap 11 mEq/L (7-15); Blood Urea Nitrogen* 20 mg/dL (7-30); Carbon Dioxide* 23 mmol/L (20-32); Creatinine* 0.8 mg/dL (0.5-1.5); Est. Creatinine Clearance* 33.41; Estimated Glomerular Filt Rate 72 ml/min; Glucose* 163 mg/dL (60-115)
[2024-06-24 08:50] LABS: Calcium* 9.5 mg/dL (8.4-10.6)
--- OUTSIDE RECORDS SUMMARY | 2024-06-24 09:06 | XMS_ITS | Clinical Summary ---
Author Organization [facility] Address [place], [place] [address] Care Team Providers Care Die Keeper Name Role Phone Catrachita Vela Primary Care Provider [phone] Allergies Active Allergy Reactions Criticality Noted Date Comments Amlodipine Edema 01/19/2009 Atenolol Tremors 05/12/2008 Ciprofloxacin Arthralgia 09/22/2013 Caused joint pains Codeine Other - Describe In Comment Field 07/10/2008 Dry mouth Diatrizoate Allergen Hives 05/12/2008 Lisinopril Other - Describe In Comment Field 11/29/2008 Fatigue Medications Medication Sig Dispensed Refills Start Date End Date Status medical supply, miscellaneous (GRADUATED COMPRESSION STOCKINGS)Indicati ons:Varicose veins of both lower extremities, unspecified whether complicated 20-30 mm/Hg calf high or thigh high compression stockings - Venous insufficiency 6 Packet 0 Active multivitamins-mine rals-lutein (CENTRUM SILVER) 0.4-300-250 mg-mcg-mcg tab Take 1 Tablet by mouth once daily. Active latanoprost (XALATAN) 0.005 % ophthalmic solutionIndication s:open angle glaucoma INSTILL 1 DROP IN BOTH EYES AT BEDTIME 7.5 mL 3 Active ciclopirox solution (LOPROX) 8 % solutionIndication s:onychomycosis due to dermatophyte APPLY TOPICALLY TO THE AFFECTED AREA AT BEDTIME 6.6 mL 2 3 Active ferrous sulfate 325 mg delayed release tabletIndications: iron deficiency anemia TAKE 1 TABLET BY MOUTH THREE TIMES PER WEEK 90 Tablet 3 4 Active clopidogreL (PLAVIX) 75 mg tabletIndications: acute coronary syndrome Take 1 Tablet (75 mg) by mouth every morning. 90 Tablet 3 4 Active pravastatin (PRAVACHOL) 20 mg tabletIndications: atherosclerotic cardiovascular disease Take 1 Tablet (20 mg) by mouth at bedtime. 90 Tablet 3 4 Active oxybutynin XL (DITROPAN XL) 5 mg CR tabletIndications: bladder hyperactivity Take 1 Tablet (5 mg) by mouth once daily. 90 Tablet 3 4 Active acetaminophen (TYLENOL EXTRA STRGTH) 500 mg tablet Take 1-2 Tablets by mouth every 6 hours if needed for Pain. Max acetaminophen dose: 4000mg in 24 hrs. Active Walker - 4 wheelsIndications: Encephalopathy due to COVID-19 virus,Poor balance For home use. Length of need: 99 walker with wheels and seat 1 Each 4 Active losartan (COZAAR) 50 mg tabletIndications: HTN (hypertension) Take 1 Tablet (50 mg) by mouth once daily. 90 Tablet 3 4 Active famotidine (PEPCID) 40 mg tabletIndications: Chronic GERD TAKE 1 TABLET(40 MG) BY MOUTH EVERY DAY 90 Tablet 3 4 Active thyroid ([place] Thyroid) 60 mg tabletIndications: Hypothyroidism (acquired) TAKE 1 TABLET BY MOUTH DAILY 90 Tablet 1 4 Active famotidine (PEPCID) 40 mg tabletIndications: dyspepsia Take 1 Tablet (40 mg) by mouth once daily. 90 Tablet 3 3 06/07/20 24 Discontinued thyroid ([place] Thyroid) 60 mg tabletIndications: hypothyroidism Take 1 Tablet (60 mg) by mouth once daily. 90 Tablet 3 3 06/21/20 24 Discontinued mupirocin 2% ointmentIndication s:Skin abrasion Apply topically to affected area(s) three times daily for 5 days. 30 g 4 05/29/20 24 Active Problems Problem Noted Date Diagnosed Date Moderate dementia without behavioral disturbance 02/18/2024 Hypothyroidism (acquired) 02/16/2024 Hypokalemia 01/06/2024 Bilateral lower extremity pain 01/06/2024 Cognitive impairment 12/27/2023 COVID-19 12/23/2023 Weakness 12/23/2023 Confusion 12/23/2023 Encephalopathy due to COVID-19 virus 12/23/2023 Depression, recurrent 09/24/2023 Acute on chronic diastolic heart failure 022 Assessment & Plan (01/14/2023 7:14 AM CDT): Chart update only. SHAVON Han .................... 01/14/2023 7:14 AM Stage 3b chronic kidney disease 09/04/2021 Assessment & Plan (01/14/2023 7:14 AM CDT): Chart update only. SHAVON Han .................... 01/14/2023 7:14 AM Lower GI bleed 06/19/2021 Overview (06/04/2022): Colonoscopy [facility] 05/2021 R bleeding, internal hemorrhoids(felt to be cause of acute rectal bleed) Hospitalized at [facility]: colonoscopy (05/2021)showed a number of sites of bleeding in the right colon which the gastroenterology bleed felt was likely the cause of her iron deficiency. These were treated with argon laser cauterization. Also noted to have internal hemorrhoids present on colonoscopy which were felt to be the cause of her rectal bleeding. ASA stopped Post-op Diagnoses: ? - Three colonic angiodysplastic lesions. Treated with argon beam ? coagulation. Clip (MR conditional) was placed. ? - Three 4 to 5 mm polyps in the descending colon and in the transverse ? colon, removed with a cold snare. Resected and retrieved. ? - Diverticulosis in the recto-sigmoid colon. ? - Internal hemorrhoids. Sebaceous cyst 01/25/2019 Systolic hypertension 03/24/2016 Gallstones 10/15/2015 Impaired fasting glucose 05/24/2015 Nocturnal leg cramps 05/24/2015 Cataract of both eyes 06/09/2014 Cognitive impairment 02/23/2014 Anemia 02/10/2014 Overview (07/24/2021): Acute on chronic anemia with GI bleed after ASA added to plavix therapy EGD: 05/2021 active gastritis Colonoscopy: multiple polyps, R colon bleeding cauterized,colonoscopy revealed multiple sites of angio ectasia in the right colon which were treated with argon laser ASA stopped Chronic - EGD 2013 showed gastritis Low ferrtin Colonography 2018 negative for causes of blood loss Left knee DJD 11/01/2013 Diastolic dysfunction 08/19/2013 Hyperlipidemia 06/17/2013 Gastritis - atrophic 08/12/2012 Overview (11/05/2020): EGD 2013 - gastritis that could account for mild blood loss Osteopenia 08/12/2012 Overview (12/04/2021): DEXA 2020 - increased frax score for hip Discussed with patient use of bisphosphonates. Patient uncertain if she would like to start medication. Will readdress annually Colon polyp 08/14/2011 Overview (07/24/2021): Colonoscopy 07/2011 polyp repeat in 5 years Colonoscopy 11/2016 incomplete to sigmoid, severe diverticular disease, recommend BE or virtual colonography if desired Colonography 2018 negative for polyp/tumor Colonoscopy [facility] 2020:??Colon, transverse, descending, endoscopic biopsy: Tubular adenoma, low-grade dysplasia. POAG (primary open-angle glaucoma) 04/01/2011 Overview (04/01/2011): Left Eye Onychomycosis 03/10/2011 Insomnia, unspecified 12/03/2010 Mixed incontinence urge and stress (male)(female ) 10/29/2010 Chronic rhinitis 10/01/2010 TIA (transient ischemic attack) 06/18/2010 Overview (06/19/2021): ASA added to plavix after TIA in 03/2021 Neuro consult ASA stopped after significant GI bleed 05/2021 Unspecified venous (peripheral) insufficiency LACUNAR INFARCTION 10/05/2000 Overview (12/22/2008): MRI head 03/06: small vessel ischemic disease, chronic lacunar infarct right basal ganglia CHRONIC ANXIETY Overview (01/25/2008): With hyperventilation Irritable bowel syndrome CHRONIC DIZZINESS Overview (01/25/2008): Suspect benign positional vertigo Varicose vein Osteoarthritis Resolved Problems Problem Noted Date Diagnosed Date Resolved Date Gastritis 03/21/2014 03/24/2016 Overview (03/21/2014): EGD 02/2014 gastritis, no follow up EGD needed HTN (hypertension) 02/09/2014 4 Osteoarthritis 05/13/2012 07/12/2012 Osteoarthritis 05/13/2012 10/18/2012 Abdominal bloating 12/22/2011 3 Anemia, unspecified 06/30/2011 03/24/20 14 Diarrhea 06/16/2011 10/18/2012 Left elbow pain 11/22/2010 11/11/2012 Unspecified urinary incontinence 10/01/2010 10/18/2012 Unspecified urinary incontinence 10/01/2010 10/01/2010 Thrombophlebitis leg superficial 08/02/2008 10/18/2012 Allergic rhinitis, cause unspecified 10/18/2012 Unspecified transient cerebral ischemia 10/01/2010 Overview (01/25/2008): Possible x 2 Unspecified glaucoma 012 Encounters Date Type Department Care Team Description 06/19/2024 Refill [facility] [address] [place] [address] Catrachita Vela PA Refill Request ([place] Thyroid) 06/02/2024 Refill [facility] [address] [place] [address] Catrachita Vela PA Refill Request (Famotidine) 05/24/2024 1:10 PM CDT Office Visit [facility] [address] [place] [address] Catrachita Vela PA Bee Sting (Got stung by a bee about a week ago-got under her shirt-hurt so bad her shirt couldn't touch it-still has a bump there) 05/24/2024 Travel 05/13/2024 Refill [facility] [address] [place] [address] Willow Oglesby PA Refill Request (Latanoprost) 05/05/2024 Refill [facility] [address] [place] [address] Willow Oglesby PA Refill Request (Latanoprost) 04/19/2024 2:50 PM CDT Office Visit [facility] [address] [place] [address] Catrachita Vela PA Fall (fall on 04/02/2447-[id number] pain on left side of chest around ribcage, karissa on her back); Serious Illness Conversation 04/19/2024 Travel 04/10/2024 11:37 AM CDT - 04/10/2024 12:15 PM CDT Emergency [address] [address] Lilliam Lubin PA Encounter for staple removal (Primary Dx) Discharge Disposition: Home Self Care 04/10/2024 Travel 04/02/2024 4:40 PM CDT - 04/02/2024 8:47 PM CDT Emergency [address] [address] Neva John DO Mott, Sarah Emily, MD Concussion with unknown loss of consciousness status, initial encounter (Primary Dx); Laceration of scalp, initial encounter Discharge Disposition: Home Self Care 03/25/2024 Telephone [facility] [address] [place] [address] Catrachita Vela PA Medication Management from Last 3 Months Immunizations Name Administration Dates Next Due AMB Influenza, IIV3 (Age >=3 years)(Flu Clinic Only) 06/05/2009,06/26/2008 Amb Influenza, Inact (High-d ose) (Flu Clinic Only) 07/10/2016 COVID-19 vaccine ([employer] 30mcg/0.3mL) 12YO+ BIVALENT PF, MDV 07/30/2022 COVID-19 vaccine ([employer] 30mcg/0.3mL) PF, MDV 07/24/2021,11/06/2020,10/16/2020 Influenza, High-dose Inactivated 07/10/2016,12/2014,05/23/2014 Influenza, High-dose Quadriv alent Inactivated 05/16/2020 Influenza, IIV3 (Age 6-35 mos) 06/09/2011 Influenza, IIV3 (Age >=3 years) 06/17/20 13,05/12/2012,06/09/2011,2008,06/26/2008,07/29/2007,07/21/2006,1 08/31/2005,07/17/2005,07/01/2004, 003 Influenza, Inactivated AIIV4 (Age 65+ Years) Preserv Free 07/09/2023,06/04/2022,07/24/2021 Influenza, Inactivated IIV3 (Age 65+ Years) Preserv Free 07/06/2019,04/28/2018,05/27/2017 Pneumococcal Poly,23-Valent (Pneumovax) 07/01/2004 Pneumococcal conj 13-Valent (Prevnar 13) 10/16/2014 Td, Preservative Free (age > = 7 Years) 03/10/2011 Tdap 04/02/2024 Zoster (Shingrix-RZV, recombinant) 03/15/2018, Zoster (Zostavax-ZVL, live) 07/12/2012 Family History Medical History Relation Name Comments Stroke Brother 3 age 33 Cancer Brother 4 bladder Other Daughter Lali has aneurysm Alcohol/Drug Father Cancer Father lung Cancer Mother bladder Hypertension Mother Cancer-breast Paternal Aunt Relation Name Status Comments Brother 1 Alive Brother 2 Alive Brother 3 Brother 4 Daughter Lali Father (Age 76) Mother (Age 88) Paternal Aunt Social History Tobacco Use Types Packs/Day Years Used Date Smoking Tobacco: Former Cigarettes 0 1 Smokeless Tobacco: Never Tobacco Cessation:Counseling Given: Yes Alcohol Use Standard Drinks/Week Comments No 0 (1 standard drink = 0.6 oz pur e alcohol) 1-2 a year. PHQ-2 Answer Date Recorded PHQ-2 TOTAL SCORE 0 09/22/2023 Social Connections Answer Date Recorded Frequency of Communication with Friends and Fami ly 0 09/22/2023 Financial Resource Strain Answer Date R ecorded Difficulty of Paying Living Expenses 3 09/22/2023 Difficulty of Paying Living Expenses Not on file 09/22/2023 Food Insecurity Answer Date Recorded Do you worry your food will run out before you are able to buy more? 1 01/06/2024 Transportation Needs Answer Date Record ed Lack of Transportation (Medical) 1 09/22/2023 Housing Stability Answer Date Recorded What is your housing situation today? 1 01/06/2024 Sex and Gender Information Value Date Recorded Sex Assigned at Not on file Gender Identity Not on file Sexual Orientation Not on file Obstetrics History Para Term AB IAB SAB Ectopic Multiple Livin g Live Births 2 2 2 Date Outcome GA Total Labor Labor/2nd/3rd Weight Sex Type Anes PTL Vandana A1 A5 Name Clin Para Para Last Filed Vital Signs Vital Sign Reading Time Taken Comments Blood Pressure 138/79 05/24/2024 1:18 PM CDT Pulse 87 05/24/2024 1:18 PM CDT Temperature 36.4 ??C (97.5 ??F) 04/10/2024 11:43 AM C DT Respiratory Rate 16 04/10/2024 11:43 AM CDT Oxygen Saturation 92% 05/24/2024 1:18 PM CDT Inhaled Oxygen Concentration - - Weight 61.7 kg (136 lb) 05/24/2024 1:18 PM CDT Height 165.1 cm (5' 5) 04/10/2024 11:43 AM CDT Body Mass Index 22.63 04/10/2024 11:43 AM CDT Plan of Treatment Health Maintenance Due Date Last Done Comments RSV vaccine for adults or (1 - 1-dose 75+ series) 2013 COVID-19 vaccine series ( season) 2024 07/30/2022, 07/24/2021, 11/06/2020, Additional history exists Influenza for age 65+ 05/01/2024 07/09/2023 , 06/04/2022, 07/24/2021, Additional history exists BMI (ht and wt on same day) for age 18+ 09/22/2024 09/22/2023, 06/04/2022, 10/10/2020, Additional history exists Depression screening for age 12+ 09/22/2024 09/22/2023, 06/04/2022, 10/11/2020, Additional history exists Medicare Wellness for age 65+ 09/22/2024, 06/04/2022, 10/10/2020, Additional history exists Tetanus booster 04/02/2034 04/02/2024, 02/28, 03/10/2011 Pneumococcal series for age 65+ Completed 5, 07/01/2004 Zoster (shingles) series for age 50+ Completed 03/15/2018, 12/24/2017, 07/12/2012 DEXA/DXA scan for age 65+ Completed 2020, 08/10/2012, 02/08/2009 Tdap Completed 04/02/2024, 01/13/2014 Procedures Procedure Name Priority Date/Time Associated Diagnosis Comments TROPONIN T (HS) ONE TIME Timed 04/02/2024 7:[address] HEAD BRAIN WO STAT 04/02/2024 5:[address] SPINE CERVICAL WO STAT 04/02/2024 5:11 PM CDT XR CHEST 1 VIEW PORTABLE STAT 04/02/2024 4:57 PM CDT TROPONIN T (HS) ACUTE W/2HR REFLEX STAT 04/02/2024 4:48 PM CDT PROTIME-INR STAT 04/02/2024 4:48 PM CDT BASIC METABOLIC PANEL STAT 04/02/2024 4:48 PM CDT CBC W PLT NO DIFF STAT 04/02/2024 4:4 8 PM CDT GLUCOSE METER Routine 04/02/2024 4:43 PM CDT EKG 12 LEAD STAT 04/02/2024 4:39 PM CDT XR DXA BONE DENSITY 2 SITES AXIAL Routine 10/11/2020 12:10 PM ASSOCIATE SALES REPRESENTATIVE Other specified disorders of bone density and structure, multiple sites Osteopenia, unspecified location from Last 3 Months or Most Recently Relevant to Health Maintenance Results * (ABNORMAL) TROPONIN T (HS) ONE TIME (04/02/2024 7:07 PM CDT) Pathologist [facility] TROPONIN T HS 36(H) 6-10 ng/L ng/L 04/02/2024 7:31 PM CDT [facility] Blood BLOOD SPECIMEN / Unknown Venipuncture / Unknown 04/02/2024 7:07 PM CDT 04/02/2024 7:07 PM CDT Neva John DO CHEMISTRY [facility] [address] [address] * CT HEAD BRAIN WO (04/02/2024 5:12 PM CDT) Anatomical Region Laterality Modality HEAD, BRAIN Computed Tomogra phy Neva John DO CT * CT SPINE CERVICAL WO (04/02/2024 5:11 PM CDT) Anatomical Region Laterality Modality CERVICAL SPINE, NECK, Spine Comp uted Tomography Neva John DO CT * XR CHEST 1 VIEW PORTABLE (04/02/2024 4:57 PM CDT) Anatomical Region Laterality Modality HEART, THORAX, CHEST Digital Rad iography Neva John DO GENERAL IMAGING * (ABNORMAL) TROPONIN T (HS) ACUTE W/2HR REFLEX (04/02/2024 4:48 PM CDT) TROPONIN T HS 38(H) 6-10 ng/L ng/L 04/02/2024 5:15 PM CDT [facility] Blood BLOOD SPECIMEN / Unknown Venipuncture / Unknown 04/02/2024 4:48 PM CDT 04/02/2024 4:49 PM CDT Narrative [facility] - 04/02/2024 5:15 PM CDT hs-cTnT (Elecsys Troponin T Gen 5) concentration (s) above the sex-specific 99th percentile (16 ng/L or greater for males or 11 ng/L or greater for females) are indicative of myocardial injury. If initial hs-cTnT <=100 ng/L at presentation, a 0h/2h ABSOLUTE (ng/L) delta change (rising or falling) of >=10 ng/L suggests a significant change, whereas a 0h/2h delta change <=3 ng/L suggests no significant change. If initial hs-cTnT >100 ng/L at presentation, a 0h/2h/ RELATIVE (percent, %) delta change of 20% is suggested to distinguish patients with acute vs. chronic myocardial injury. There are multiple etiologies that can cause hs-cTnT increases above the 99th percentile (myocardial injury) other than acute myocardial infarction. Clinical context and careful clinical evaluation are critical for diagnosis and risk-stratification. The diagnosis of acute myocardial infarction requires a rising and/or falling pattern in hs-cTnT concentrations with at least one value above the sex-specific 99th percentile PLUS at least one of the following clinical criteria: ischemic symptoms, new or presumed new significant ST-T wave changes or new LBBB, development of pathological Q waves, imaging evidence of new loss of viable myocardium or new regional wall motion abnormality, or identification of intracoronary atherothrombosis or an acute angiographic culprit on coronary angiography. In appropriate low-risk patients with a non-ischemic electrocardiogram without active chest pain with a symptom onset >3-hours without recurrence, a single initial hs-cTnT<6 ng/L identifies patient with a very low risk in emergency department patient population. Nevaopal Brunerwni John DO CHEMISTRY [facility] [address] [address] * (ABNORMAL) CBC W PLT NO DIFF (04/02/2024 4:48 PM CDT) Pathologist [facility] WHITE BLOOD COUNT 5.0 4.5 - 11.0 thou/cu mm 04/02/2024 4:53 PM CDT [facility] RED BLOOD COUNT 3.55(L) 4.00 - 5.20 mil/cu mm 04/02/2024 4:53 PM [facility] HEMOGLOBIN 10.6(L) 12.0 - 16.0 g/dL 04/02/2024 4:53 PM [facility] HEMATOCRIT 32.2(L) 33.0 - 51.0 % 04/02/2024 4:53 PM T [facility] MCV 91 80 - 100 fL 04/02/2024 4:53 PM T [facility] MCH 29.9 26.0 - 34.0 pg 04/02/2024 4:53 PM [facility] MCHC 32.9 32.0 - 36.0 g/dL 04/02/2024 4:53 PM [facility] RDW 13.6 11.5 - 15.5 % 04/02/2024 4:53 PM [facility] PLATELET COUNT 241 140 - 440 thou/cu mm 04/02/2024 4:53 PM [facility] MPV 9.5 6.5 - 11.0 fL 04/02/2024 4:53 PM [facility] Blood BLOOD SPECIMEN / Unknown Venipuncture / Unknown 04/02/2024 4:48 PM CDT 04/02/2024 4:49 PM CDT Neva John DO HEMATOLOGY [facility] [address] [address] * PROTIME-INR (04/02/2024 4:48 PM CDT) Pathologist [facility] INR 1.0 <1.3 04/02/2024 5:00 PM CDT [facility] PROTIME 11.4 10.3 - 12.3 sec 04/02/2024 5:00 PM CDT [facility] Blood BLOOD SPECIMEN / Unknown Venipuncture / Unknown 04/02/2024 4:48 PM CDT 04/02/2024 4:[address] [facility] - 04/02/2024 5:00 PM CDT ?Therapeutic Range 2.0-3.0 for most anticoagulated patients 2.5-3.5 or 4.0 for high risk patients The INR is only used for patients on stable oral anticoagulant therapy. It makes no significant contribution to the diagnosis or treatment of patients whose Protime is prolonged for other reasons. INR results are increased when heparin levels exceed 1.0 U/mL, which corresponds to an aPTT >125 seconds if the patient is on UFH. Neva John DO HEMATOLOGY [facility] [address] [address] * (ABNORMAL) BASIC METABOLIC PANEL (04/02/2024 4:48 PM CDT) [facility] SODIUM 142 136 - 145 mmol/L 04/02/2024 5:15 PM CDT [facility] POTASSIUM 3.8 3.5 - 5.1 mmol/L 04/02/2024 5:15 PM CDT [facility] CHLORIDE 105 98 - 107 mmol/L 04/02/2024 5:15 PM CDT [facility] CO2,TOTAL 24 22 - 29 mmol/L 04/02/2024 5:15 PM CDT [facility] ANION GAP 13 5 - 18 04/02/2024 5:15 PM CDT [facility] GLUCOSE 114(H) 70 - 99 mg/dL 04/02/2024 5:15 PM CDT [facility] CALCIUM 9.7 8.8 - 10.2 mg/dL 04/02/2024 5:15 PM CDT [facility] BUN 24(H) 8 - 23 mg/dL 04/02/2024 5:15 PM CDT [facility] CREATININE 0.88 0.50 - 0.90 mg/dL 04/02/2024 5:15 PM T [facility] BUN/CREAT RATIO 27(H) 10 - 20 5:15 PM T [facility] eGFR 64(L) >90 mL/min/1.7 3m2 04/02/2024 5:15 PM T [facility] Comment:As of 2021, eG FR is calculated by the CKD-EPI creatinine equation without race adjustment. ??eGFR can be influenced by muscle mass, exercise, and diet. ??The reported eGFR is an estimation only and is only applicable if the renal function is stable. Blood BLOOD SPECIMEN / Unknown Venipuncture / Unknown 04/02/2024 4:48 PM CDT 04/02/2024 4:49 PM CDT Neva John DO CHEMISTRY Performing Organization Address City/[facility]/ZIP Co de Phone Number [facility] [address] [address] * (ABNORMAL) GLUCOSE METER (04/02/2024 4:43 PM CDT) [facility] Signature GLUCOSE METER 104(H) 65 - 100 mg/dL 04/02/2024 6:33 PM CDT [facility] Blood BLOOD SPECIMEN / Unknown 04/02/2024 4:43 PM CDT 04/02/2024 6:33 PM CDT Neva John DO CHEMISTRY Performing Organization Address City/[facility]/ZIP Co de Phone Number [facility] [address] [address] * EKG 12 LEAD (04/02/2024 4:39 PM CDT) Interpretation Normal sinus rhythm Nonspecific ST abnormality Abnormal ECG When compared with ECG of 06-Jan-2024 06:27, Premature supraventricular complexes are no longer Present ST no longer depressed in Anterior leads Nonspecific T wave abnormality no longer evident in Inferior leads BEYOND NOW Ventricular Rate 81 BPM BEYOND NOW Atrial Rate 81 BPM BEYOND NOW P-R Interval 160 ms BEYOND NOW QRS Duration 86 ms BEYOND NOW QT 370 ms BEYOND NOW QTc 429 ms BEYOND NOW P [place] 46 degrees BEYOND NOW R [place] 46 degrees BEYOND NOW T [place] 61 degrees BEYOND NOW 04/02/2024 4:39 PM CDT 04/03/2024 4:27 PM CDT Neva Lanier Dora DO EKG ORD BEYOND NOW [place], [place] * (ABNORMAL) XR DXA BONE DENSITY 2 SITES AXIAL (10/11/2020 12:10 PM ASSOCIATE SALES REPRESENTATIVE) Anatomical Region Laterality Modality Spine, HIPS, HIPL, HIPR Other Impressions 10/17/2020 9:05 AM ASSOCIATE SALES REPRESENTATIVE Osteopenia. RECOMMENDATIONS: - The National Osteoporosis Foundation recommends pharmacologic treatment for patients with T-scores of -2.5 or less, patients with prior history of fragility fractures, or patients with 10-year probability of greater than 3% at hips or greater than 20% of suffering major osteoporotic fractures. - Recommend continued optimization of calcium and vitamin D intake through dietary means and/or supplementation and regular exercise. Repeat scan recommended in 2-3 years. Cristy Schumacher PA-C Narrative 10/17/2020 9:05 AM ASSOCIATE SALES REPRESENTATIVE XR DXA Bone Mineral Density (BMD) EXAM LOCATION: [address] [address] PATIENT NAME: Elda Lockwood DATE OF : 1940 EXAM DATE: 10/11/2020 REQUESTING PROVIDER: Nora Watters MD GENDER AT : female HEIGHT: 5' 2.6 (10/10/2020) WEIGHT: ??152 lb 11.2 oz (10/10/2020) MENOPAUSAL STATUS: Postmenopausal RACE/ETHNICITY: White RISK FACTORS: ADVANCED AGE and RACE CURRENT MEDICATION FOR BONE LOSS: NONE INDICATION: FOLLOW UP OF EXISTING OSTEOPENIA COMPARISON DATE(S): 2011 at [facility] DXA scans are compared to prior studies for a patient only when the two (or more) studies were performed on the same scanner. It is not possible to compare data generated on one scanner to data from another because there are not standards in DXA equipment. This applies even if the two scanners are made by the same muffle worker. PROCEDURE: Dual-energy x-ray absorptiometry performed with routine technique. Reporting is completed in the form of a T-score. The T-score represents the standard deviation from peak bone mass based on young healthy adult. A Z-score is used for diagnosis in premenopausal women, and for men under the age of 50. FINDINGS: RESULT LUMBAR SPINE L1 - L4 BMD: 1.283 g/cm2 T-Score: 0.7 Z-Score: 2.5 Comparison to baseline scan in 2012: ??Increase 8.8%. RESULT FEMORAL NECK Bilateral Total Femoral Neck BMD: 0.860 g/cm2 T-Score: -1.3 Z-Score: 0.9 RESULT TOTAL HIP Bilateral Total Hip BMD: 0.897 g/cm2 T-Score: -0.9 Z-Score: 1.2 Comparison to baseline scan in 2012: ??Decrease 8.7%. WHO criteria: Normal: T-score at or above -1 SD Osteopenia: T-score between -1.1 and -2.4 SD Osteoporosis: T-score at or below -2.5 SD FRAX RISK CALCULATION (USED FOR OSTEOPENIA ONLY): 10-year probability of major osteoporotic fracture: 12.8%. 10-year probability of hip fracture: 3.2%. Nora Watters MD DEXA from Last 3 Months or Most Recently Relevant to Health Maintenance Advance Directives Documents on File Type Date Recorded Patient [place] Attendant Expl anation Power of Readers' Advisory Service Librarian 04/26/2015 04/26/2015 * DNR (Latest Code Status on File) Date Activated Date Inactivated Comments 01/06/2024 11:44 AM 01/08/2024 4:48 PM Question Answer Comments Code Status Discussion: Reviewed Preferences * DNR Date Activated Date Inactivated Comments 12/24/2023 6:45 AM 12/29/2023 2:08 PM Question Answer Comments Code Status Discussion: Reviewed Preferences * Full Code Date Activated Date Inactivated Comments 12/23/2023 8:33 PM 12/24/2023 6:45 AM Question Answer Comments Code Status Discussion: Unable to Assess Preferences, Provider to review later * Full Code Date Activated Date Inactivated Comments 11/08/2013 7:36 AM 11/08/2013 2:06 PM * Full Code Date Activated Date Inactivated Comments 04/01/2011 4:26 PM 04/02/2011 2:20 AM Care Teams Die Keeper Relationship Specialty Start Date End Date Catrachita Vela PA [address] [place] [address] PCP - General Physician [employer] 02/23/23
[2024-06-24 11:47] LABS: Appearance Urine Clear (Clear); Bilirubin Urine Negative (Negative); Blood Urine Negative (Negative); Color Urine Yellow (Yellow); Glucose Urine Negative (Negative); Ketones Urine Negative (Negative); Leukocyte Esterase Urine Negative (Negative); Nitrite Urine Negative (Negative); Protein Urine 2+ (Negative); Specific Gravity Urine 1.025 (1.000-1.030); Urobilinogen Urine 0.2 (0.2-1.0)
[2024-06-24 11:56] LABS: RBC Urine 0-2 (0-2); Squamous Epithelial Cell Urine Moderate (None-Few); WBC Urine 0-2 (0-5)
[2024-06-24 14:22] LABS: Troponin I* < 0.01 ng/mL (0.01-0.04)
--- NOTE | 2024-06-24 14:50 | PM.IMHP1 ---
Hospitalist- H&P: HPI History of Present Illness Date Seen: 06/24/24 Chief complaint: Weakness Narrative: Elda Lockwood is a 84 year old female who presented to the ER by ambulance for weakness. She was accompanied by family members in the ER, they had left by the time she was seen for admission. Patient notes that she felt a little ?shaky? yesterday, without a fever. This morning she was very weak and could not ambulate to the bathroom. She denies any dysuria, states chronic urinary incontinence. No diarrhea or constipation, appetite a little low, no nausea or vomiting, no abdominal pain. No recent falls. No recent illness; although per the ER, she had COVID within the past year and has had difficulty with weakness since then. ER Course and findings: - reassuring lab panel and VS - unable to get out of bed without the assistance of 2 people Given patient's weakness and inability to ambulate without assistance, patient is admitted to the hospital in observation status. Review of Systems Status of ROS: Reports: 10 or more systems reviewed and unremarkable except as noted in History and below Narrative: - denies recent falls (notably had a fall + scalp laceration requiring sutures and ER visit in March 2024) [facility] Medical History (Updated 06/24/24 @ 15:28 by Yue Bojorquez MD) CKD (chronic kidney disease) stage 3, GFR 30-59 ml/min ?N18.30 - Chronic kidney disease, stage 3 unspecified (ICD-10) (HFpEF) heart failure with preserved ejection fraction ?I50.30 - Unspecified diastolic (congestive) heart failure (ICD-10) Glaucoma ?H40.9 - Unspecified glaucoma (ICD-10) Melanoma ?C43.9 - Malignant melanoma of skin, unspecified (ICD-10) Anxiety ?F41.9 - Anxiety disorder, unspecified (ICD-10) Blood disorder ?D75.9 - Disease of blood and blood-forming organs, unspecified (ICD-10) Anemia ?D64.9 - Anemia, unspecified (ICD-10) Incontinence of urine ?R32 - Unspecified urinary incontinence (ICD-10) Chronic kidney disease ?N18.9 - Chronic kidney disease, unspecified (ICD-10) GERD (gastroesophageal reflux disease) ?K21.9 - Gastro-esophageal reflux disease without esophagitis (ICD-10) Irritable bowel syndrome (IBS) ?K58.9 - Irritable bowel syndrome without diarrhea (ICD-10) High cholesterol ?E78.00 - Pure hypercholesterolemia, unspecified (ICD-10) Hypertension ?I10 - Essential (primary) hypertension (ICD-10) TIA (transient ischemic attack) ?G45.9 - Transient cerebral ischemic attack, unspecified (ICD-10) Infection due to severe acute respiratory syndrome coronavirus 2 (SARS-CoV-2) ?U07.1 - COVID-19 (ICD-10) Surgical History (Updated 04/13/23 @ 12:33 by Ghazal Arthur ~ FAGOTING MACHINE OPERATOR, FAGOTING MACHINE OPERATOR) History of arthroscopy of left knee (~11/08/13) ?Z98.890 - Other specified postprocedural states (ICD-10) History of bladder repair surgery ?Z98.890 - Other specified postprocedural states (ICD-10) History of tonsillectomy ?Z90.89 - Acquired absence of other organs (ICD-10) History of hysterectomy ?Z90.710 - Acquired absence of both cervix and uterus (ICD-10) History of left knee replacement (~07/31/09) ?Z96.652 - Presence of left artificial knee joint (ICD-10) History of appendectomy ?Z90.49 - Acquired absence of other specified parts of digestive tract (ICD-10) History of phacoemulsification of cataract of left eye with intraocular lens implantation (06/14/14) ?Z98.42 - Cataract extraction status, left eye (ICD-10) ?Z96.1 - Presence of intraocular lens (ICD-10) History of phacoemulsification of cataract of right eye with intraocular lens implantation (06/28/14) ?Z98.41 - Cataract extraction status, right eye (ICD-10) ?Z96.1 - Presence of intraocular lens (ICD-10) History of arthroscopy of left shoulder (07/09/18) ?Z98.890 - Other specified postprocedural states (ICD-10) History of carpal tunnel release (10/21/18) ?Z98.890 - Other specified postprocedural states (ICD-10) History of YAG laser capsulotomy of lens of right eye (05/02/20) ?Z98.41 - Cataract extraction status, right eye (ICD-10) History of YAG laser capsulotomy of lens of left eye (05/16/20) ?Z98.42 - Cataract extraction status, left eye (ICD-10) Family History (Updated 03/10/23 @ 09:45 by Zion Peace) Other Alcohol dependence Breast cancer High blood pressure Stroke Social History (Updated 06/24/24 @ 15:12 by Yue Bojorquez MD) Narrative: Lives with and son in [place]. Nonsmoker, no concerning ETOH use. Requests DNR/DNI status, also noted in Epic chart during recent clinic visit with PCP. What is your current living situation?: I presently have a place to live Problems where you live: unable to answer Problems where you live details: N/A In the past 12 months, utilities in danger of being shut off: unable to answer In past 12 months, lack of transportation kept you from medical appts, meetings, work, or getting things needed for daily living: unable to answer In the past 12 mos, have been you worried that your food would run out before you had money to buy more?: unable to answer In the past 12 mos, the food you bought just didn't last and you didn't have money to buy more?: unable to answer Smoking Status: Never smoker Do you use any of these nicotine containing products: None Second hand tobacco smoke exposure: No How often do you have a drink containing alcohol: never How often do you have six or more drinks on one occasion: Never AUDIT-C Alcohol total score: 0 Non-prescribed substance use: denies use Caffeine: Yes How often does anyone, including family, friends and others, physically hurt you: unable to answer How often does anyone, including family, friends and others, insult or talk down to you: unable to answer How often does anyone, including family, friends and others, threaten you with harm: unable to answer How often does anyone, including family, friends and others, scream or curse at you: unable to answer service: No Meds Home Medications and Allergies Home Medications ?Medication ?Instructions ?Recorded ?Confirmed ?Type clopidogrel 75 mg tablet 75 mg PO DAILY 11/17/22 06/24/24 History latanoprost 0.005 % eye drops 1 drp ophthalmic (eye) HS 11/17/22 06/24/24 History pravastatin 20 mg tablet 20 mg PO DAILY 11/17/22 06/24/24 History famotidine 40 mg tablet 40 mg PO DAILY 06/24/24 06/24/24 History ferrous sulfate 325 mg (65 mg 325 mg PO 3XW 06/24/24 06/24/24 History iron) tablet,delayed release losartan 50 mg tablet 50 mg PO DAILY 06/24/24 06/24/24 History wybswzin-dgd-wjihs acid 0.4 1 tab PO DAILY 06/24/24 06/24/24 History mg-lycopene 300 mcg-lutein 250 mcg tablet (Centrum Silver) oxybutynin chloride 5 mg 5 mg PO DAILY 06/24/24 06/24/24 History tablet,extended release 24 hr thyroid (pork) 60 mg tablet 60 mg PO DAILY 06/24/24 06/24/24 History ([place] Thyroid) Allergies Allergy/AdvReac Type Severity Reaction Status Date / Time ciprofloxacin Allergy Mild Joint Pain Verified 06/24/24 08:17 lisinopril Allergy Mild Fatigued Verified 06/24/24 08:17 amlodipine AdvReac Unknown Verified 06/24/24 08:17 atenolol AdvReac Unknown Verified 06/24/24 08:17 codeine AdvReac Unknown Dry Mouth Verified 06/24/24 08:17 contrast dye Allergy Unknown Hives Uncoded 06/24/24 08:17 Exam Narrative: Exam Narrative: GEN: Resting in bed, awakes to voice HEENT: EOMIs bilaterally, no scleral icterus CV: RRR, No concerning murmurs, rubs R: LCTA bilaterally Ab: Soft and nontender, nondistended. Tolerates palpation Ext: Trace pretibial edema bilaterally. Symmetric strength and ROM of upper extremities. Able to dorsiflex and plantar flex both feet while laying in bed, able to lift both legs off the bed against gravity Skin: No concerning skin lesions or rashes on exposed skin Neuro: No focal deficits or resting tremor, gait not observed Psych: Appropriate Const: Vital Signs, click to edit/add: Vital Signs - 24 hr 06/24/24 07:51 06/24/24 09:02 06/24/24 09:32 Temperature 98.1 F Pulse Rate 76 68 Pulse Rate [Pulse Oximeter] 77 Respiratory Rate 16 14 12 Blood Pressure 155/72 H 150/72 H Blood Pressure [Ri ght Arm] Blood Pressure [Ri ght Upper Arm] 163/75 H Pulse Oximetry 97 96 97 Oxygen Delivery Me thod Room Air 06/24/24 10:02 06/24/24 10:32 06/24/24 11:01 Temperature Pulse Rate 72 70 84 Pulse Rate [Pulse Oximeter] Respiratory Rate 14 12 16 Blood Pressure 161/75 H 149/73 H 151/73 H Blood Pressure [Ri ght Arm] Blood Pressure [Ri ght Upper Arm] Pulse Oximetry 96 97 97 Oxygen Delivery Me thod 06/24/24 11:41 06/24/24 12:02 06/24/24 12:32 Temperature Pulse Rate 80 72 68 Pulse Rate [Pulse Oximeter] Respiratory Rate 12 12 16 Blood Pressure 155/64 H 139/64 142/68 H Blood Pressure [Ri ght Arm] Blood Pressure [Ri ght Upper Arm] Pulse Oximetry 97 95 94 Oxygen Delivery Me thod Room Air 06/24/24 12:54 06/24/24 13:12 Temperature 98.1 F 98.3 F Pulse Rate Pulse Rate [Pulse Oximeter] 77 90 Respiratory Rate 16 14 Blood Pressure Blood Pressure [Ri ght Arm] 156/78 H Blood Pressure [Ri ght Upper Arm] 163/75 H Pulse Oximetry 95 Oxygen Delivery Me thod Room Air Hospitalist - H&P: Result Labs Labs: Short CBC 06/24/24 Range/Units 08:14 WBC 11.05 H (4.50-11.00) K/uL Hgb 11.9 L (12.0-16.0) gm/dL Hct 36.1 (33.0-51.0) % Plt Count 218 (140-440) K/uL BMP 06/24/24 08:14 Sodium 133 L Potassium 3.8 Chloride 99 Carbon Dioxide 23 BUN 20 Creatinine 0.8 Glucose 163 H Calcium 9.5 Cardiac Enzymes 06/24/24 Range/Units 08:14 Troponin I < 0.01 L (0.01-0.04) ng/mL Urine 06/24/24 Range/Units 11:35 Urine Color Yellow (Yellow) Urine Appearance Clear (Clear) Urine pH 6.0 (5.0-8.5) Ur Specific [place] 1.025 (1.000-1.030) Urine Protein 2+ A (Negative) Urine Glucose (UA) Negative (Negative) Assessment and Plan Assessment and plan (1) Weakness: Problem comment: - no other concerning symptoms - reassuring labs, VS, exam - therapies ordered to assist with evaluation Status: Acute (2) Hypertension: Problem comment: - continue home dose of Losartan Status: Acute (3) TIA (transient ischemic attack): Problem comment: - historically, likely the reason she's on Plavix Status: Acute (4) CKD (chronic kidney disease) stage 3, GFR 30-59 ml/min: Problem comment: - outpatient GF 50-60 Status: Acute Plan - per above - SCDs and Plavix for ppx - DNR/DNI
--- NOTE | 2024-06-24 18:34 | PC.NURSE ---
Addendum entered by Mary Ann Carter RN 06/24/24 18:55: Healing bruise noted on left breast, patient unable to recall how she got it. Original Note: Shift Summary: Patinet pleasant and cooperative. Answers appropriately however voice is soft and mumbled, mostly answers yes/no. Had x1 emesis, vitals following are WNL and placed in chart. Incontinent of bladder, staff perform pericares. Denies nausea following emesis however still refused dinner, informed patient that food is available throughout the night if needed. 2 assist with walker and gait belt.
[2024-06-24] MEDS: SODIUM CHLORIDE 0.9 % (FLUSH) 10 ML SYRINGE 5 ML IVF (21:23)
[2024-06-24] MEDS: LATANOPROST 0.005% OPHTH 1 DROP EYE-BOTH (21:23)
[2024-06-25 02:36] VITALS: BP 133/58; PULSE 68; RESP 16; TEMP 36.7; O2SAT 96
--- NOTE | 2024-06-25 06:33 | PC.NURSE ---
Shift note: Pt is alert and oriented. She has been sleeping most of the night. Ambulated with A1, walker and GB to and from . Pt had 1 incontinent urine. She reported feeling weak and tired. O2>90% on room air. Vitally stable.
[2024-06-25] MEDS: FAMOTIDINE 20 MG TABLET 40 MG PO (08:38)
[2024-06-25] MEDS: LOSARTAN POTASSIUM 50 MG TABLET PO (08:38)
[2024-06-25] MEDS: CLOPIDOGREL 75 MG TABLET PO (08:38)
[2024-06-25] MEDS: PRAVASTATIN SODIUM 20 MG TABLET PO (08:38)
[2024-06-25] MEDS: oxyBUTYnin chloride 5 MG TAB.ER.24 PO (08:38)
[2024-06-25] MEDS: SODIUM CHLORIDE 0.9 % (FLUSH) 10 ML SYRINGE 5 ML IVF (08:40)
[2024-06-25 09:00] VITALS: BP 149/82; PULSE 86; RESP 16; TEMP 37.1; O2SAT 98
--- NOTE | 2024-06-25 13:45 | P.DS_ITS ---
DS: Providers Provider Date Seen: 06/25/24 Date of admission: 06/24/24 12:53 Primary care physician: Catrachita Vela PA-C Admitting Clinician: Yue Bojorquez MD Attending Physician on discharge: Onur Farrar MD Date of Discharge: 06/25/24 DS: Diagnosis Discharge Diagnosis (1) Dementia with behavioral disturbance: Status: Acute Problem details: Family notes that on the day of admission patient was resisting there attempts to provide care in the home. Patient does not recall any of this. Has previous diagnosis of cognitive impairment. Would recommend outpatient evaluation for functional status and cognitive impairment with PT and OT (2) Weakness: Status: Acute Problem details: No focal weakness on admission. No generalized weakness on discharge. Stroke evaluation is unremarkable. Therapists indicate she is able to ambulate with a walker (3) Dizziness: Status: Acute Problem details: Staff report patient had some dizziness yesterday but she denies having dizziness currently and does not recall dizziness from yesterday. DS: Summary Hospital Course Hospital Course: 84-year-old female with dementia who lives with her son and at home was admitted to the hospital after having abnormal behavior and concern for neurologic problem on the day of admission. Patient does not recall any of this but her son reports that she was at not herself yesterday she was weak and having trouble walking to the bathroom. When he attempted to help her and reposition her in bed she became uncooperative and resisting his attempts to take care of her. Since arrival in the emergency room she has been back to baseline. She has had evaluation by physical therapy which has shown no signifi cant new deficits. On the day of discharge patient reports she is back to baseline. and son are present and they think she is back to baseline. She is able to ambulate with physical therapy and evaluated by Occupational therapy. She did not receive cognitive testing here but that would be appropriate as an outpatient as well as ongoing outpatient evaluation for functional capacity and safety. Status at Discharge Functional status at discharge: uses cane/walker Overall status at discharge: patient is back to baseline Time Spent with Patient Time attestation: Total time spent providing and/or coordinating discharge services: 35 minutes Time spent: Greater than 30 minutes Exam Narrative: Exam Narrative: She is alert and appears in no distress. She does give her own history but does not recall much of the events of yesterday. Head is without trauma. Eyes normal. No facial asymmetry. Oropharynx is normal. Neck is supple without mass or adenopathy. Respirations are clear to auscultation. Cardiovascular: S1, S2, regular rate and rhythm. Abdomen: Bowel sounds active. No tenderness or mass. She moves all 4 extremities well with symmetric strength. No rash. Const: Vital Signs, click to edit/add: Vital Signs - 24 hr 06/24/24 17:44 06/24/24 19:00 06/24/24 23:00 Temperature 98.2 F 99.2 F Pulse Rate [Pulse Oximeter] 96 81 67 Respiratory Rate 16 16 16 Blood Pressure [Ri ght Arm] 151/86 H 140/63 H Pulse Oximetry 94 96 Oxygen Delivery Me thod Room Air Room Air 06/24/24 23:00 06/25/24 02:36 06/25/24 09:00 Temperature 99.5 F 98.1 F 98.7 F Pulse Rate [Pulse Oximeter] 67 68 86 Respiratory Rate 16 16 16 Blood Pressure [Ri ght Arm] 135/59 L 133/58 L 149/82 H Pulse Oximetry 97 96 98 Oxygen Delivery Me thod Room Air Room Air Room Air Documenting provider has reviewed patient's vital signs: yes DS: Data Data Completed and Pending Labs on day of discharge: Labs from last 24 hours 06/24/24 08:14 Troponin I < 0.01 L TSH 1.150 Preliminary micro results at discharge 06/24/24 08:04 Urine Culture - Preliminary Urine Random < 50,000 COL/ML MIXED GRAM POSITIVE RAYO ISOLATED NO FURTHER WORKUP Imaging MR Brain: Radiologist's impression: INDICATION: Acute speech difficulties. TECHNIQUE: Sagittal T1, axial FLAIR, T2, diffusion-weighted and susceptibility weighted images of the brain. Comparison : CT brain dated 09/06/2021. FINDINGS: The ventricles normal in size and configuration no evidence of acute ischemic infarction. No areas of diffusion restriction no evidence of intracranial hemorrhage. Multi focal and confluent zones of FLAIR/T2 signal hyperintensity within bilateral supratentorial white matter and with fewer but similar findings in the basal ganglia and moiz. The changes are consistent with chronic microvascular ischemia. Orbits, sella and skull base unremarkable. Left maxillary sinus retention cyst and mild maxillary sinus mucosal thickening. IMPRESSION: 1. No evidence of acute ischemic infarction, intracranial hemorrhage or mass. 2. Consistent with moderate chronic microvascular ischemic change Discharge Plan Discharge Disposition: Home w/ Parent or Adult Date of Admission: 06/24/24 12:53 Attending Provider on Discharge: Martinez Farrar Primary Care Provider: Catrachita Vela Anticipated Discharge Date/Time: 06/25/24 11:11 Discharge Medications: Continued losartan 50 mg tablet 50 mg PO DAILY famotidine 40 mg tablet 40 mg PO DAILY oxybutynin chloride 5 mg tablet extended release 24hr 5 mg PO DAILY ferrous sulfate 325 mg (65 mg iron) tablet,delayed release (DR/EC) 325 mg PO 3XW thyroid (pork) [[place] Thyroid] 60 mg tablet 60 mg PO DAILY Centrum Silver 0.4 mg-300 mcg- 250 mcg tablet 1 tab PO DAILY latanoprost 0.005 % drops 1 drp ophthalmic (eye) HS clopidogrel 75 mg tablet 75 mg PO DAILY pravastatin 20 mg tablet 20 mg PO DAILY Discharge Orders: Discharge Order (Routine); Ordered 06/25/24 Ordered By: Martinez Farrar Patient Education: Weakness (DC) Activity Level: Use Walker Discharge Diet: Regular Follow Up Appointments: [facility] [Outside] Catrachita Vela, PA-C [Primary Care Provider] - (PCP unavailable during time frame ) Promise Blank [Referring] - 07/01/24 9:10 am ([facility] for follow up appointment. PCP was unavailable during desired time frame) Forms: [facility] [employer] [facility] Instructions
--- NOTE | 2024-06-25 14:51 | PC.NURSE ---
Discharge: Patient appears improved today. Up walking in halls with one assist, walker and gait belt. Patient stated she has a walker at home but prefers not to use it. Tolerating regular diet, denies nausea or pain. Vitals stable and WNL. Answering questions appropriately. Family present, discussed follow up and discharge instructions. IV removed. Patient D/C @ 1227 to home.
== END 2024-06-25 12:27 | disposition home or self-care (01) ==
LOC: ED 09:03 → MEDSURG 12:53
PROVIDERS: Admitting Provider Family Medicine; Emergency Provider Emergency Medicine Emergency Medical Services; PCP Physician Assistant; Visit Provider Family Medicine
DX: M62.81 Muscle weakness (generalized) (principal); F03.918 Unspecified dementia, unspecified severity, with other behavioral disturbance; R32 Unspecified urinary incontinence; R60.9 Edema, unspecified; N18.30 Chronic kidney disease, stage 3 unspecified; E78.00 Pure hypercholesterolemia, unspecified; I10 Essential (primary) hypertension; K21.9 Gastro-esophageal reflux disease without esophagitis; F41.9 Anxiety disorder, unspecified; Z86.16 Personal history of COVID-19; Z86.73 Personal history of transient ischemic attack (TIA), and cerebral infarction without residual deficits; Z90.89 Acquired absence of other organs; Z90.710 Acquired absence of both cervix and uterus; Z90.49 Acquired absence of other specified parts of digestive tract; Z98.42 Cataract extraction status, left eye; Z98.41 Cataract extraction status, right eye; Z96.652 Presence of left artificial knee joint; Z96.1 Presence of intraocular lens; Z98.890 Other specified postprocedural states; Z66 Do not resuscitate
CPT/HCPCS: 36415; 80048; 81001; 84443; 84484; 85025; 87086; 87631; 93005; 97116; 97161; 97166; 97530; 97535; 99285; A9270; G0378